=== PATIENT | male | born 1970 | race Hispanic/Latino ===

== ENCOUNTER 2018-11-23 09:24 | Emergency (ER) | payer OTHER, SELFPAY ==
[2018-11-23 09:26] VITALS: BP 154/91; PULSE 78; RESP 19; TEMP 36.1; O2SAT 96; BMI 35.5
--- NOTE | 2018-11-23 09:37 | EKG12_ITS ---
Test Reason : CP Blood Pressure : / mmHG Vent. Rate : 065 BPM Atrial Rate : 065 BPM P-R Int : 162 ms QRS Dur : 102 ms QT Int : 398 ms P-R-T Axes : 046 018 017 degrees QTc Int : 413 ms Normal sinus rhythm Normal ECG Confirmed by YESENIA PEDROZA, CAITY ([id number]), technical editor SAUL BATEMAN ([id number]) on 11/24/2018 3:32:45 PM Referred By: PC Confirmed By:CAITY PATTERSON MD
--- NOTE | 2018-11-23 09:37 | RAD_ITS ---
STUDY: X-RAY CHEST REASON FOR EXAM: Male, 47 years old. Chest pain. Hypertension. TECHNIQUE: Single AP portable view of the chest. COMPARISON: None. FINDINGS: EKG electrodes are seen. The lungs are clear and expanded. Scattered calcified granulomas. There is no demonstrated pleural abnormality. Normal size heart. Normal mediastinum and david. Normal visualized pulmonary arteries. Normal visualized aortic arch and descending thoracic aorta. Normal visualized thoracic spine. Normal visualized ribs, clavicles, and shoulders. There is no demonstrated abnormality of the visualized soft tissue structures of the upper abdomen. RAD/Chest 1 View (Portable) IMPRESSION: Normal x-ray examination of the chest. Electronically Signed: Chava De La Cruz MD at 10:39 EST Tel [phone], Service support ,
[2018-11-23 09:49] VITALS: BP 145/88; PULSE 68; RESP 18; O2SAT 97; O2SAT 98
[2018-11-23 10:02] LABS: Absolute Lymphocyte Count 2.96 X10^3/ul (0.83-4.51); Absolute Neutrophil Count 5.1 X10^3/uL (2.0-7.7); Basophil# 0.05 X10^3/uL; Basophil% 0.6 % (0-1); Eosinophil# 0.15 X10^3/uL; Eosinophils% 1.7 % (0-5); Hemoglobin 14.2 g/dl (13.0-16.5); Lymphocyte # 2.96 X10^3/ul (4.0); Lymphocyte % 32.9 % (19-41); Mean Corpuscular Hgb 29.5 pg (27.0-32.0); Mean Corpuscular Volume 89.2 fL (80-94); Mean Platelet Vol. 9.9 fl (6.2-12.0); Monocyte# 0.66 X10^3/uL; Monocyte% 7.3 % (0-10); Neutrophil # 5.14 X10^3/uL (2.7-7.7); Neutrophil % 57.2 % (47-70); Platelet Count 280 K/mm3 (150-450); RBC Distribution Width CV 13.8 % (11.6-14.6); RBC Distribution Width SD 44.9 fl (35.1-43.9); Red Blood Count 4.82 M/mm3 (4.6-6.2)
[2018-11-23 10:06] LABS: POSITIVE COUNT NO; POSITIVE DIFFERENTIAL NO; POSITIVE MORPHOLOGY NO
[2018-11-23 10:14] LABS: Anion Gap 7 (5-15); BUN 16 mg/dL (7-18); Calcium,Total 8.6 mg/dL (8.5-10.1); Chloride 107 mmol/L (98-107); Creatinine, Serum 1.07 mg/dL (0.70-1.30); EST Glomerular Filtration Rate 78 mL/min (>60); Est Glom Filt Rate - Afr Amer 95 mL/min (>60); Glucose 100 mg/dL (74-106); Potassium 4.1 mmol/L (3.5-5.1); Sodium Level 141 mmol/L (136-145)
--- NOTE | 2018-11-23 10:20 | ED.VISSUMM ---
- ER Visit Summary Date of Service: 11/23/18 Chief Complaint: Chest pain History of Present Illness: The patient is a 47 M with a 2-day history of intermittent chest pain, he has episodes of sharp stabbing pain the last 1 or 2 seconds sometimes 3 seconds. No radiation. No back pain or tearing sensation. 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 No shortness of breath. No abdominal pain. No headache or neurological symptoms. Otherwise he feels well. Physical Examination: Not appear in acute distress. Moist mucous membranes, no obvious facial deformity No C-spine tenderness supple neck. Regular rate and rhythm without any obvious murmurs Clear lungs bilaterally speaking in full sentences without any obvious respiratory distress Abdomen soft and nontender no guarding or rebound Moves all extremities without any difficulty or pain. Skin does not show any obvious rashes or lesions, no trauma. Alert oriented ?3 with no gross focal deficit Emergency Department Course and Treatment: Patient has a normal EKG, normal troponin. Heart score is 1 at best. He is stable for discharge to follow-up with PCP. There is no concern for PE or dissection. His blood pressure in the emergency department is only slightly elevated at 150/91. Disposition: Discharge stable condition Impression: Chest pain. This note was generated with [employer] dictation software. It may contain incorrect words, spelling, and punctuation that were not noted in review of the chart prior to signing ED Disposition - Plan for ED Patient: Disposition: Home or Assisted Living Chief Complaint: Hypertension Instructions: ED HTN Established [facility] [[facility] Provider] -
[2018-11-23] MEDS: Aspirin 81 MG TAB.CHEW 324 MG PO (10:33)
[2018-11-23 10:36] VITALS: BP 144/86; PULSE 78; RESP 16; O2SAT 97
== END 2018-11-23 10:37 | disposition home or self-care (01) ==
PROVIDERS: Emergency Provider Emergency Medicine
DX: R07.9 Chest pain, unspecified (principal)
CPT/HCPCS: 71045; 80048; 84484; 85025; 93005; 99284

== ENCOUNTER 2018-12-01 13:43 | Emergency (ER) | payer OTHER, SELFPAY ==
[2018-12-01 13:44] VITALS: BP 156/77; PULSE 98; RESP 18; TEMP 38.4; O2SAT 96; BMI 37.4
[2018-12-01 14:31] VITALS: TEMP 37.6
--- NOTE | 2018-12-01 15:08 | ED.DCSUM_ITS ---
- ER Visit Summary Date of Service: 12/01/18 Chief Complaint: Fever History of Present Illness: The patient is a 47 M with a fever that started yesterday and continued today. He has been alternating Tylenol and Motrin, but he has still been having fevers. He also reports flulike symptoms, cough, myalgias, chills. He is previously healthy and takes no chronic medications. Non-smoker. No chest pain or shortness of breath. No nausea, vomiting, or diarrhea. No urinary symptoms. No rash. Physical Examination: 99.6. Blood pressure 156/77. Heart rate 98. Pulse ox 96% on room air. The patient appears uncomfortable but not toxic or in distress. Alert and oriented. HEENT exam unremarkable. Neck nontender with good range of motion. No meningeal signs. Heart regular rate and rhythm. No murmurs. Lungs clear in all cook. Abdomen soft. Moves all extremities. Joints good range of motion. Good strength and sensation. Skin normal in color. Test Results: Influenza testing was negative. Emergency Department Course and Treatment: Patient likely has a viral syndrome. He has flulike symptoms. No red flag features. His exam, vitals, history, and past medical history are all reassuring. No indication for further diagnostic testing, especially consultation, hospitalization. Patient should continue alternating Tylenol and/or Motrin as needed for pain and fever. Stay hydrated. Rest. Return for any new or worsening issues. Treatment Plan: As above Disposition: Discharge Impression: 1. Febrile illness This note was generated with [employer] dictation software. It may contain incorrect words, spelling, and punctuation that were not noted in review of the chart prior to signing ED Disposition - Plan for ED Patient: Chief Complaint: Fever [facility] [[facility] Provider] -
--- NOTE | 2018-12-01 15:08 | ED.DEP ---
ED Disposition - Plan for ED Patient: Chief Complaint: Fever Instructions: ED Fever Unconf Cause [facility]errals[facility] [Primary [facility] Provider] -
[2018-12-01 15:13] VITALS: BP 150/76; PULSE 87; RESP 16; O2SAT 99
--- OUTSIDE RECORDS SUMMARY | 2019-02-05 14:25 | XMS RPT_ITS ---
:1970 Author Organization [facility] Care Team Providers Name Role Phone Pascual Santana Attending [facility] Inderjit Sands Attending Unavailable PROBLEMS PROBLEMS No Problem Records FoundPROCEDURES PROCEDURES No Procedure Records FoundRESULTS RESULTS EMERGENCY DEPARTMENT Observed: 12/01/2018 Status: F Source: [place] SUMMARY 11:50 PM [facility] REPOSITORY [facility] Medical Records Department [address] [place] [address] Emergency Department Summary 12/01/18 1505 MR#: [id number] Acct: [id number] Name: RAJEEV SERRANO Rep #: [id number] : 1970 47 From: Inderjit Sands MD PCP: [place], [place] Status: DEP ER - ER Visit Summary Date of Service: 12/01/18 Chief Complaint: Fever History of Present Illness: The patient is a 47 M with a fever that started yesterday and continued today. He has been alternating Tylenol and Motrin, but he has still been having fevers. He also reports flulike symptoms, cough, myalgias, chills. He is previously healthy and takes no chronic medications. Non-smoker. No chest pain or shortness of breath. No nausea, vomiting, or diarrhea. No urinary symptoms. No rash. Physical Examination: 99.6. Blood pressure 156/77. Heart rate 98. Pulse ox 96% on room air. The patient appears uncomfortable but not toxic or in distress. Alert and oriented. HEENT exam unremarkable. Neck nontender with good range of motion. No meningeal signs. Heart regular rate and rhythm. No murmurs. Lungs clear in all cook. Abdomen soft. Moves all extremities. Joints good range of motion. Good strength and sensation. Skin normal in color. Test Results: Influenza testing was negative. Emergency Department Course and Treatment: Patient likely has a viral syndrome. He has flulike symptoms. No red flag features. His exam, vitals, history, and past medical history are all reassuring. No indication for further diagnostic testing, especially consultation, hospitalization. Patient should continue alternating Tylenol and/or Motrin as needed for pain and fever. Stay hydrated. Rest. Return for any new or worsening issues. Treatment Plan: As above Disposition: Discharge Impression: 1. Febrile illness This note was generated with [employer] dictation software. It may contain incorrect words, spelling, and punctuation that were not noted in review of the chart prior to signing ED Disposition - Plan for ED Patient: Chief Complaint: Fever [place] [facility] [Primary Care Provider] - What to do if you have Problems For any increased pain, shortness of breath, bleeding, nausea or vomiting, chest pain, or any unexpected problems, contact your Primary Care Provider. Call [facility] ([phone]) or report to the closest Emergency Room. Call 911 if necessary. 12/01/18 4550 <Electronically signed by Inderjit Sands MD> Date Inderjit Sands MD Cosigner Signature (If Indicated): Date CC: [facility] DISCHARGE INSTRUCTION Observed: 12/01/2018 Status: F Source: [place] 11:50 PM [facility] REPOSITORY [facility] Medical Records Department [address] [place] [address] Discharge Instruction 12/01/18 1508 MR#: [id number] Acct: [id number] Name: RAJEEV SERRANO Rep #: [id number] : 1970 47 From: Inderjit Sands MD PCP: [place] Status: DEP ER ED Disposition - Plan for ED Patient: Chief Complaint: Fever Instructions: ED Fever Unconf Cause Referrals[facility] [Primary [facility] Provider] - What to do if you have Problems For any increased pain, shortness of breath, bleeding, nausea or vomiting, chest pain, or any unexpected problems, contact your Primary Care Provider. Call [facility] ([phone]) or report to the closest Emergency Room. Call 911 if necessary. 12/01/18 2350 <Electronically signed by Inderjit Sands MD> Date Inderjit Sands MD Cosigner Signature (If Indicated): Date CC: [facility] Observed: 12/01/2018 Status: F Source: [place] INFLUENZA A+B (RAPID 2:[address] [facility]) REPOSITORY FLU A/B Rapid Negative test results should be confirmed with FLU PANEL MOLECULAR if indicated. Influenza Ag, Direct Presumptive NEGATIVE for Influenza A/B Antigen (See Note) Performed By: #### M101.0101 #### [facility] [address] [place] [address]. [place], [address] 12 LEAD ELECTROCARDIOGRAM Observed: 11/24/2018 Status: F Source: [place] 3:33 PM [facility] REPOSITORY [facility] Cardiovascular Services [address] [place] [address] 12 Lead EKG 11/23/18 0934 MR#: [id number] Acct: [id number] Name: RAJEEV SERRANO Rep #: [id number] : 1970 47 From: Pascual Patterson MD Attending Dr: Status: DEP ER Ordering Dr: Pascual Santana MD Date: 11/23/18 Location: ED Sex: M H Admitted: Test Reason : CP Blood Pressure : / mmHG Vent. Rate : 065 BPM Atrial Rate : 065 BPM P-R Int : 162 ms QRS Dur : 102 ms QT Int : 398 ms P-R-T Axes : 046 018 017 degrees QTc Int : 413 ms Normal sinus rhythm Normal ECG Confirmed by YESENIA PEDROZA, PASCUAL ([id number]), scientific editor SAUL BATEMAN ([id number]) on 11/24/2018 3:32:45 PM Referred By: PC Confirmed By:PASCUAL PATTERSON MD 11/24/18 1532 Date Pascual Patterson MD CC: [facility]; Pascual Santana MD Signed EMERGENCY DEPARTMENT Observed: 11/23/2018 Status: F Source: [place] SUMMARY 10:23 AM [facility] REPOSITORY [facility] Medical Records Department [address] [place] [address] Emergency Department Summary 11/23/18 1020 MR#: [id number] Acct: [id number] Name: RAJEEV SERRANO Rep #: [id number] : 1970 47 From: Pascual Santana MD PCP: [place] Status: REG ER - ER Visit Summary Date of Service: 11/23/18 Chief Complaint: Chest pain History of Present Illness: The patient is a 47 M with a 2- day history of intermittent chest pain, he has episodes of sharp stabbing pain the last 1 or 2 seconds sometimes 3 seconds. No radiation. No back pain or tearing sensation. 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 No shortness of breath. No abdominal pain. No headache or neurological symptoms. Otherwise he feels well. Physical Examination: Not appear in acute distress. Moist mucous membranes, no obvious facial deformity No C-spine tenderness supple neck. Regular rate and rhythm without any obvious murmurs Clear lungs bilaterally speaking in full sentences without any obvious respiratory distress Abdomen soft and nontender no guarding or rebound Moves all extremities without any difficulty or pain. Skin does not show any obvious rashes or lesions, no trauma. Alert oriented 3 with no gross focal deficit Emergency Department Course and Treatment: Patient has a normal EKG, normal troponin. Heart score is 1 at best. He is stable for discharge to follow- up with PCP. There is no concern for PE or dissection. His blood pressure in the emergency department is only slightly elevated at 150/91. Disposition: Discharge stable condition Impression: Chest pain. This note was generated with [employer] dictation software. It may contain incorrect words, spelling, and punctuation that were not noted in review of the chart prior to signing ED Disposition - Plan for ED Patient: Disposition: Home or Assisted Living Chief Complaint: Hypertension Instructions: ED HTN Established [facility]errals[facility] [Primary Care Provider] - What to do if you have Problems For any increased pain, shortness of breath, bleeding, nausea or vomiting, chest pain, or any unexpected problems, contact your Primary Care Provider. Call [facility] ([phone]) or report to the closest Emergency Room. Call 911 if necessary. 11/23/18 1023 <Electronically signed by Pascual Santana MD> Date Pascual Santana MD Cosigner Signature (If Indicated): Date CC: [facility] CBC W/DIFF, AUTOMATED Collected: 11/23/2018 Status: F Source: [place] 9:50 AM [facility] REPOSITORY TYPE CODE TESTS RESULT OUT OF RANGE REFERENCE UNITS LAB L100.1000 4.4-11.0 K/mm3 Normal WBC 9.0 LAB L100.1200 4.6-6.2 M/mm3 Normal RBC 4.82 LAB L100.1300 13.0-16.5 g/dl Normal HGB 14.2 LAB L100.1400 40-54 % Normal HCT 43.0 LAB L100.1500 80-94 fL Normal MCV 89.2 LAB L100.1600 27.0-32.0 pg Normal MCH 29.5 LAB L100.1700 32-36 g/gl Normal MCHC 33.0 LAB L100.1810 11.6-14.6 % Normal RDW CV 13.8 LAB L100.1820 35.1-43.9 fl High RDW SD 44.9 LAB L100.1900 150-450 K/mm3 Normal PLT 280 LAB L100.2000 6.2-12.0 fl Normal MPV 9.9 LAB L100.2100 47-70 % Normal NEUT% 57.2 LAB L100.2200 19-41 % Normal LY% 32.9 LAB L100.2300 0-10 % Normal MONO% 7.3 LAB L100.2400 0-5 % Normal EO% 1.7 LAB L100.2500 0-1 % Normal BASO% 0.6 LAB L100.2550 0.0-0.9 % Normal IM GRAN % 0.300 Result Comment: IG% - Immature Granulocytes (promyelocytes, myelocytes and metamyelocytes) > 1% indicates that a LEFT SHIFT is Present. LAB L100.2620 2.0-7.7 X10 3/uL Normal Absolute Neut 5.1 LAB L100.2720 0.83-4.51 X10 3/ul Normal Absolute Lymph 2.96 Performed By: #### L100.0100 #### [facility] [address] [place], [place], [address] BASIC METABOLIC Collected: 11/23/2018 Status: F Source: [place] PROFILE (BMP) 9:50 AM [facility] REPOSITORY TYPE CODE TESTS RESULT OUT OF RANGE REFERENCE UNITS LAB L501.0100 74-106 mg/dL Normal GLU 100 Result Comment: Fasting Glucose result from 100 to 125 mg/dL suggests IMPAIRED HOMEOSTASIS per A.D.A. criteria. Please note revised GLUCOSE reference range effective 2017. LAB L501.1000 7-18 mg/dL Normal BUN 16 LAB L501.1100 0.70-1.30 mg/dL Normal CREAT,SERUM 1.07 Result Comment: The validity of the calculated GFR AND GFRAA in patients over 70 years has not been determined. Clinical correlation is essential. LAB L501.1110 >60 mL/min Normal EST GFR 78 Result Comment: Non- GFR Calc LAB L501.1115 >60 mL/min Normal EST GFR - AA 95 Result Comment: GFR Calc LAB L501.1255 ml/min Normal Estimated CRCL 90.90 LAB L501.1300 10-20 RATIO Normal BUN/CRE 15.0 LAB L501.2200 8.5-10 mg/dL Normal .1 CA 8.6 LAB L501.5300 136-14 mmol/L Normal 5 NA 141 LAB L501.5600 3.5-5. mmol/L Normal 1 K 4.1 LAB L501.5900 98-107 mmol/L Normal CL 107 LAB L501.6100 21.0-3 mmol/L Normal 2.0 CO2 27.0 LAB L501.6200 5-15 Normal GAP 7 Performed By: #### L500.2500, L501.4010 #### [facility] [address] [facility] [address] [place], [place], [address] TROPONIN-I Collected: 11/23/2018 Status: F Source: [place] 9:50 AM [facility] REPOSITORY TYPE CODE TESTS RESULT OUT OF RANGE REFERENCE UNITS LAB L501.4010 <0.045 ng/mL Normal < 0.015 TROPONIN-I Result Comment: TROPONIN-I EXPECTED VALUES <0.045 Negative 0.045 - 0.590 Consistent with Cardiac Damage > OR = 0.600 Critical Value Not every elevated troponin is indicative of CA. These values should be used with clinical judgement in examining the patient's clinical picture for diagnosis. To establish a diagnosis of CA versus myocardial injury, there must be a demonstrated rise and/or fall in the troponin values, in addition to ischemic symptoms, EKG changes, new regional wall motion abnormality, and/or angiographical evidence. PLEASE NOTE: REFERENCE RANGES EDITED 18 Performed By: #### L500.2500, L501.4010 #### [facility] [address] [place], [place], [address] CHEST 1 VIEW Observed: 11/23/2018 Status: F Source: [place] (PORTABLE) 9:38 AM [facility] REPOSITORY [facility] Imaging Services [address] [place] [address] Chest 1 View (Portable) MR#: [id number] Acct: [id number] Name: RAJEEV SERRANO Rep #: [id number] : 1970 M 47 From: Chava De La Cruz MD PCP: [place] Status: DEP ER Study: Chest 1 View (Portable) Date of Exam: 11/23/18 Exam# [id number] Ordering Dr: Pascual Santana MD STUDY: X-RAY CHEST REASON FOR EXAM: Male, 47 years old. Chest pain. Hypertension. TECHNIQUE: Single AP portable view of the chest. COMPARISON: None. FINDINGS: EKG electrodes are seen. The lungs are clear and expanded. Scattered calcified granulomas. There is no demonstrated pleural abnormality. Normal size heart. Normal mediastinum and david. Normal visualized pulmonary arteries. Normal visualized aortic arch and descending thoracic aorta. Normal visualized thoracic spine. Normal visualized ribs, clavicles, and shoulders. There is no demonstrated abnormality of the visualized soft tissue structures of the upper abdomen. RAD/Chest 1 View (Portable) IMPRESSION: Normal x-ray examination of the chest. Electronically Signed: Chava De La Cruz MD at 10:39 EST Tel [phone], Service support , CC: [facility]; Pascual Santana MD Chain Carrier: Signed ALLERGIES ALLERGIES DATE TYPE / CODE NAME / CODE REACTION SEVERITY SOURCE 12/01/2018 Drug hydrocodone/ Itching Unknown [facility]/4160 [id number]([facility] [address]10(SNOMED XNORM) Repository CT) 12/01/2018 Drug oxycodone/F0 Itching Unknown [facility] Allergy/4160 [id number]([facility] 96830(SNOMED ORM) Repository CT) ENCOUNTERS ENCOUNTERS ADMIT/DISCHARGE ACCOUNT ADMITTING ENCOUNTER LOCATION SOURCE NUMBER CLASS 12/01/2018/ [id number] Emergency [facility] ing:ED Repository 11/23/2018/ [id number] Emergency [place] [address] [place] [address] ing:ED Repository PAYERS PAYERS ENCOUNTER GUARANTOR PAYER SUBSCRIBER SOURCE 12/01/2018 RAJEEV CROWEERA211 Primary Insurance:AL RAJEEV [place] [facility] LOERADOB: [place], [place] Number: [id number] [address]Lon: [phone] [id number] Repository [phone] () Date:[id number] SERVICE [id number] [place], [place] [address]VZ: [phone] X2003 12/01/2018 Secondary RAJEEV [place] Insurance: LOSEARSPORTDOB: [facility] Number: [id number] [id number] Repository Date:[id number] [address]KC: 12/01/2018 Tertiary NOT GIVENUNK [place] Insurance:SELF PAY [facility] Number: Effective Repository Date:2018-12-01 11/23/2018 RAJEEV CROWEERA211 Primary Insurance:AL RAJEEV [place] [facility] LOERADOB: [place] Number: [id number] [address]Hhz: [phone] [id number] Repository [phone] (HP) Date:[id number] SERVICE [id number] [place], [place] [address]BR: [phone] X2003 11/23/2018 Secondary NOT GIVENUNK [place] Insurance:SELF PAY [facility] Number: Effective Repository Date:2018-11-23
== END 2018-12-01 15:14 | disposition home or self-care (01) ==
LOC: ED 15:06
PROVIDERS: Emergency Provider Emergency Medicine
DX: R50.9 Fever, unspecified (principal)
CPT/HCPCS: 87804; 99282

== ENCOUNTER 2021-10-17 05:16 | Day surgery (SDC) | payer OTHER, SELFPAY ==
--- NOTE | 2021-10-17 05:49 | HP.PCM_ITS ---
History and Physical Date of Admission: 10/17/21 Intake Visit Reasons: CSCOPE Chief Complaint: colonoscopy, hx polyps Medical Imaging Director Required: No Is patient in pain?: No Allergies hydrocodone Allergy (Verified 09/19/21 08:43) Itching oxycodone Allergy (Verified 09/19/21 08:43) Itching topiramate [From Topamax] Adverse Reaction (Mild, Verified 09/19/21 08:43) altered mental status Medications ibuprofen 200 mg capsule 200 mg PO Q6H PRN 04/26/20 [History Confirmed 09/19/21] dextroamphetamine-amphetamine 20 mg tablet 20 mg PO DAILY 09/19/21 [History Confirmed 09/19/21] dextroamphetamine-amphetamine ER 30 mg 24hr capsule,extend release 30 mg PO DAILY cap 09/19/21 [History Confirmed 09/19/21] PFSH Medical History (Updated 09/19/21 @ 08:[address] Jovan Kumar MD) Bloody stools Hemorrhoids Knee pain neck and back pain Plantar fasciitis Severe headache Shoulder pain Surgical History (Updated 09/19/21 @ 08:47 by Buffy Lopez) History of ankle surgery History of appendectomy History of colonoscopy Family History (Updated 09/19/21 @ 08:47 by Buffy Lopez) Mother Diabetes Brother Diabetes Social History Smoking Status: Never smoker Smokeless tobacco user: chewing tobacco alcohol intake: current HPI HPI HPI: RAJEEV SERRANO, is a 50 M who presents to the office today for surgical consultation regarding colonoscopy. The patient is referred by the [place] [facility] and a written copy of my consult and recommendations will return to them. He occasionally will have some rectal bleeding. It will be on the tissue. It is painless. Previous colonoscopy was done in the [facility] not quite 10 years ago. There is a history however of colon polyps. The patient is now retired from the . 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 He is currently taking care of his children at home. He denies abdominal pain. He has had head trauma and states that he has had a remote stroke but that it did not leave him with any deficit. ROS General General: No weight change, appetite, fatigue, colon cancer, breast cancer or weakness HEENT HEENT: No difficulty swallowing, eye injury, eye surgery, swollen glands or hoarseness Endo Endocrine: No thyroid disease, diabetes mellitus, thyroid cancer, Hair loss, heat intolerance or cold intolerance Musc Musculoskeletal: Yes back problems and arthritis; No rheumatoid arthritis, gout or joint pain Cardio Cardiovascular: No murmur, pacemaker, heart disease, atrial fibrillation, high blood pressure, heart attack, heart stent, palpitations, shortness of breat with exertion or chest pain Psych Psychiatric: No depression, anxiety or hearing voices Resp Respiratory: No shortness of breath, No sleep apnea, No cough, No COPD, No asthma, No emphysema and No wheezing Gastro Gastrointestinal: No abdominal pain, No nausea or vomiting, Yes diarrhea, No constipation, Yes blood in stool, No acid reflux, Yes hemorrhoids, Yes ulcers, No gallbladder problem and No black,tarry stools Rc Hematologic: No blood thinners, No blood disorders, No bleeding, No anemia and No blood clots Neuro Neurologic: No weakness Exam Const General: cooperative, healthy appearing, comfortable and no acute distress Nutritional Appearance: overweight Orientation: alert and awake [facility] Head: normal to inspection Chest Chest palpation & inspection: normal inspection of the chest Resp Effort & Inspection: normal respiratory effort Auscultation: clear to auscultation bilaterally Cardio Rate: regular rate GI Palpation: soft and no hepatosplenomegaly Auscultation: normal bowel sounds Neuro General: patient alert and patient awake Extrem General: no calf tenderness Psych Mood: anxious mood Assessment and Plan Assessment and Plan (1) Screening for intestinal cancer: Status: Acute Plan - Dr. Jovan Kumar MD: I recommended the patient a screening colonoscopy with possible biopsy or polypectomy as indicated. It is likely his infrequent blood on the tissue paper secondary to anal rectal disease likely hemorrhoids. He does report of history of polyps. He is retired from the . He has been provided a bowel prep through the [place] [facility] with movie prep. He is not on any anticoagulants. I appreciate the opportunity of assisting with his surgical care. He is considering obtaining the COVID-19 vaccine. He has previously had COVID-19 based upon symptoms and subsequent positive serum antibodies. It has been recommended to him by his physicians at the [place] that he get vaccinated as well and I concur with their recommendations. Copy: [facility] Jovan Kumar M.D., F.A.C.S. I have re-examined the patient. There are no clinical changes since date of exam.
[2021-10-17 05:53] VITALS: BP 150/83; PULSE 69; RESP 16; TEMP 36.8; O2SAT 98; BMI 37.3
[2021-10-17] MEDS: Lactated Ringers 1,000 ML 15 ML IV (05:56)
[2021-10-17 06:45] VITALS: BP 129/89; BP 150/83; PULSE 70; RESP 16; TEMP 36.3; O2SAT 94
--- NOTE | 2021-10-17 06:46 | OP.COLON_ITS ---
Patient Name: Mario Saini Procedure Date: 10/17/2021 6:23 AM Date of : 1970 Age: 50 Procedure: Colonoscopy Indications: Screening for colorectal malignant neoplasm Providers: Jovan Kumar MD Referring MD: [facility] Medicines: See the Anesthesia note for documentation of the administered medications Patient Profile: Last Colonoscopy: 10 years ago. Complications: No immediate complications. Procedure: Pre-Anesthesia Assessment: - Prior to the procedure, a History and Physical was performed, and patient medications and allergies were reviewed. The patient's tolerance of previous anesthesia was also reviewed. The risks and benefits of the procedure and the sedation options and risks were discussed with the patient. All questions were answered, and informed consent was obtained. Prior Anticoagulants: The patient has taken no previous anticoagulant or antiplatelet agents. ASA Grade Assessment: II - A patient with mild systemic disease. After reviewing the risks and benefits, the patient was deemed in satisfactory condition to undergo the procedure. After I obtained informed consent, the scope was passed under direct vision. Throughout the procedure, the patient's blood pressure, pulse, and oxygen saturations were monitored continuously. The Colonoscope was introduced through the anus and advanced to the cecum, identified by appendiceal orifice and ileocecal valve. The colonoscopy was performed without difficulty. The patient tolerated the procedure well. The quality of the bowel preparation was fair. The ileocecal valve and the appendiceal orifice were photographed. Scope In: 6:30:08 AM Scope Withdrawal Time 0 hours 7 minutes 24 seconds Scope Out: 6:41:30 AM Total Procedure Duration Time 0 hours 11 minutes 22 seconds Findings: The digital rectal exam findings include non-thrombosed external hemorrhoids, non-thrombosed internal hemorrhoids and internal hemorrhoids that prolapse with straining, but spontaneously regress to the resting position (Grade II). Posteriorly there is some scarring suggesting a healed posterior anal fissure. No active bleeding from any source. The entire examined colon appeared normal. Impression: - Preparation of the colon was fair. - Non-thrombosed external hemorrhoids, non-thrombosed internal hemorrhoids and internal hemorrhoids that prolapse with straining, but spontaneously regress to the resting position (Grade II) found on digital rectal exam. - The entire examined colon is normal. - No specimens collected. Recommendation: - Discharge patient to home. - Resume previous diet. - Continue present medications. - Repeat colonoscopy in 10 years for screening purposes. Notify me of any occurances of ano-rectal pain or bleeding. Procedure Code(s): --- Professional --- 72450, Colonoscopy, flexible; diagnostic, including collection of specimen(s) by brushing or washing, when performed (separate procedure) Diagnosis Code(s): --- Professional --- Z12.11, Encounter for screening for malignant neoplasm of colon K64.1, Second degree hemorrhoids K64.4, Residual hemorrhoidal skin tags CPT copyright 2017 [employer]. All rights reserved. The codes documented in this report are preliminary and upon search and rescue officer review may be revised to meet current compliance requirements. Jovan Kumar MD 10/17/2021 6:46:29 AM This report has been signed electronically. Number of Addenda: 0 Note Initiated On: 10/17/2021 6:23 AM
--- NOTE | 2021-10-17 06:46 | OP.CCLET_ITS ---
10/17/2021 [facility] Re : Colonoscopy procedure for [facility] This procedure was performed on October. My impressions and recommendations are as follows: Impressions : - Preparation of the colon was fair. - Non-thrombosed external hemorrhoids, non-thrombosed internal hemorrhoids and internal hemorrhoids that prolapse with straining, but spontaneously regress to the resting position (Grade II) found on digital rectal exam. - The entire examined colon is normal. - No specimens collected. Recommendations : - Discharge patient to home. - Resume previous diet. - Continue present medications. - Repeat colonoscopy in 10 years for screening purposes. Notify me of any occurances of ano-rectal pain or bleeding. My findings are described in the full procedure note, which is enclosed. If I can be of further assistance, please feel free to contact me at Doctor phone number(s): Work: . Sincerely, Jovan Kumar MD 10/17/2021 6:46:29 AM This report has been signed electronically.
[2021-10-17 06:52] VITALS: BP 138/67; BP 150/83; PULSE 68; RESP 16; O2SAT 94
[2021-10-17 06:57] VITALS: BP 131/89; BP 150/83; PULSE 70; RESP 16; O2SAT 96
[2021-10-17 07:02] VITALS: BP 140/91; BP 150/83; PULSE 69; RESP 16; TEMP 36.3; O2SAT 97
[2021-10-17 07:15] VITALS: BP 150/83
== END 2021-10-17 07:47 | disposition home or self-care (01) ==
LOC: EN 05:19 → AC 05:34
PROVIDERS: Anesthesiology; Visit Provider Surgery
PROC: 0DJD8ZZ Inspection of Lower Intestinal Tract, Via Natural or Artificial Opening Endoscopic (ICD-10-PCS; CPT 45378; principal; 2021-10-17 06:25)
DX: Z12.11 Encounter for screening for malignant neoplasm of colon (principal); K64.1 Second degree hemorrhoids; F41.9 Anxiety disorder, unspecified; M19.90 Unspecified osteoarthritis, unspecified site; Z79.899 Other long term (current) drug therapy; Z86.010 Personal history of colon polyps; Z86.73 Personal history of transient ischemic attack (TIA), and cerebral infarction without residual deficits
CPT/HCPCS: 45378; 87635; C9803; J7120; U0005; J2405; U0003

== ENCOUNTER → 2025-11-10 | Outpatient (CLI) | payer OTHER, SELFPAY ==
--- OUTSIDE RECORDS SUMMARY | 2025-11-10 12:35 | XMS RPT_ITS | CCD ---
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 mmol/L Invalid Interpretation Code 136 - 145 mmol/L AO ADM SS Urea nitrogen [Mass/Vol] 15 mg/dL Invalid Interpretation Code 7 - 18 mg/dL AO ADM SS Urea nitrogen/Creatinine [Mass ratio] 13 ratio Invalid Interpretation Code 7 - 27 ratio AO ADM SS LABORATORYOrdered By: SYSTEM SYSTEM on 11-06-2021 GFR 82 ml/min/1.73sqm Invalid Interpretation Code AO Chemistry S GFR Non- 68 ml/min/1.73sqm Invalid Interpretation Code AO Chemistry S LABORATORYOrdered By: Elisa Aguero on 11-06-2021 Troponin I.cardiac DL <= 0.01 ng/mL [Mass/Vol] 10.0 ng/L Invalid Interpretation Code 0.0 - 76.2 ng/L AO ADM SS Colonoscopy Reporton 021 Colonoscopy Report [facility] Medical Records Department [address] [place] [id number] Colonoscopy Report MR#: [id number] Acct: [id number] Name: MARIO SAINI Rep #: [id number] : 1970 50 From: Jovan Kumar MD PCP: [place] Status:[facility] Patient Name: Maroi Saini Procedure Date: 10/17/2021 6:23 AM Date of : 1970 Age: 50 Procedure: Colonoscopy Indications: Screening for colorectal malignant neoplasm Providers: Jovan Kumar MD Referring MD: [facility] Medicines: See the Anesthesia note for documentation of the administered medications Patient Profile: Last Colonoscopy: 10 years ago. Complications: No immediate complications. Procedure: Pre-Anesthesia Assessment: - Prior to the procedure, a History and Physical was performed, and patient medications and allergies were reviewed. The patient's tolerance of previous anesthesia was also reviewed. The risks and benefits of the procedure and the sedation options and risks were discussed with the patient. All questions were answered, and informed consent was obtained. Prior Anticoagulants: The patient has taken no previous anticoagulant or antiplatelet agents. ASA Grade Assessment: II - A patient with mild systemic disease. After reviewing the risks and benefits, the patient was deemed in satisfactory condition to undergo the procedure. After I obtained informed consent, the scope was passed under direct vision. Throughout the procedure, the patient's blood pressure, pulse, and oxygen saturations were monitored continuously. The Colonoscope was introduced through the anus and advanced to the cecum, identified by appendiceal orifice and ileocecal valve. The colonoscopy was performed without difficulty. The patient tolerated the procedure well. The quality of the bowel preparation was fair. The ileocecal valve and the appendiceal orifice were photographed. Scope In: 6:30:08 AM Scope Withdrawal Time 0 hours 7 minutes 24 seconds Scope Out: 6:41:30 AM Total Procedure Duration Time 0 hours 11 minutes 22 seconds Findings: The digital rectal exam findings include non-thrombosed external hemorrhoids, non-thrombosed internal hemorrhoids and internal hemorrhoids that prolapse with straining, but spontaneously regress to the resting position (Grade II). Posteriorly there is some scarring suggesting a healed posterior anal fissure. No active bleeding from any source. The entire examined colon appeared normal. Impression: - Preparation of the colon was fair. - Non-thrombosed external hemorrhoids, non-thrombosed internal hemorrhoids and internal hemorrhoids that prolapse with straining, but spontaneously regress to the resting position (Grade II) found on digital rectal exam. - The entire examined colon is normal. - No specimens collected. Recommendation: - Discharge patient to home. - Resume previous diet. - Continue present medications. - Repeat colonoscopy in 10 years for screening purposes. Notify me of any occurances of ano-rectal pain or bleeding. Procedure Code(s): --- Professional --- 54329, Colonoscopy, flexible; diagnostic, including collection of specimen(s) by brushing or washing, when performed (separate procedure) Diagnosis Code(s): --- Professional --- Z12.11, Encounter for screening for malignant neoplasm of colon K64.1, Second degree hemorrhoids K64.4, Residual hemorrhoidal skin tags CPT copyright 2017 [employer]. All rights reserved. The codes documented in this report are preliminary and upon almond blancher hand review may be revised to meet current compliance requirements. Jovan Kumar MD 10/17/2021 6:46:29 AM This report has been signed electronically. Number of Addenda: 0 Note Initiated On: 10/17/2021 6:23 AM 10/17/21645 Date Jovan Kumar MD Cosigner Signature: Date (if indicated) CC: Dr. Jovan Kumar MD; [facility] Date Dictated: 10/17/21622 Date Transcribed: Life Guard: [facility] Signed Normal [facility] COVID 19, [facility]I [facility](RT COLLECT )on 10-16-2021 SARS-CoV-2 (COVID-19) RNA GOPI+probe Ql (Unsp spec) Not detected Normal Not Detect [facility] Comment on above: Order Comment: Reaso n for Exam: preop Result Comment: Norm al Reference Range: Not Detected Method:(RT-PCR) real-time reverse transcriptase PCR [employer]x The Echo System Instrument *The Food and Drug Administration (FDA) has issued an Emergency Use Authorization (EAU) for the The Echo System SARS-CoV-2 Assay for the rapid detection of the virus that causes COVID-19. This test has been validated, but the FDAs independent review of this validation is pending. *Negative results do not preclude infection and should not be used as the sole basis for treatment or patient management. Optimum specimen types and timing for peak viral levels during infections caused by SARS-CoV-2 have not been determined. Collection of multiple specimens from the same patient may be necessary to detect the virus. The possibility of a false negative result should be considered if the patient has clinical presentation or has had recent exposure. Performed By: #### L [id number] #### [facility] [address] [place], [address] Surgery Visit Reporton 09-19 Surgery Visit Report [facility] [address] [place] [address] OFFICE VISIT Date of Service: 09/19/21 MR#: [id number] Acct: [id number] Name: MARIO SAINI Rep #: [id number] : 1970 Provider: Dr. Jovan gould MD Age/Sex: 50/M Location: [facility] Status: Signed Intake Vital Signs 09/19/21 08:45 Height 5 ft 11 in Weight: 265 lb 2 oz BMI 36.9 BP 154/81 H Blood Pressure Location Rt brachial Position Sitting Respiration 20 H Pulse 73 Pulse Source NIBP Temp 97.7 F L Temp Source Temporal Pulse Oximetry (%) 99 Oxygen Delivery Method room air Intake Visit Reasons: CSCOPE Chief Complaint: colonoscopy, hx polyps Environmental Intern Required: No Is patient in pain?: No Allergies hydrocodone Allergy (Verified 09/19/21 08:43) Itching oxycodone Allergy (Verified 09/19/21 08:43) Itching topiramate [From Topamax] Adverse Reaction (Mild, Verified 09/19/21 08:43) altered mental status Medications ibuprofen 200 mg capsule 200 mg PO Q6H PRN 04/26/20 [History Confirmed 09/19/21] dextroamphetamine-amp hetamine 20 mg tablet 20 mg PO DAILY 09/19/21 [History Confirmed 09/19/21] dextroamphetamine-amp hetamine ER 30 mg 24hr capsule,extend release 30 mg PO DAILY cap 09/19/21 [History Confirmed 09/19/21] PFSH Medical History (Updated 09/19/21 @ 08:[address] Jovan Kumar MD) Bloody stools Hemorrhoids Knee pain neck and back pain Plantar fasciitis Severe headache Shoulder pain Surgical History (Updated 09/19/21 @ 08:47 by Buffy Lopez) History of ankle surgery History of appendectomy History of colonoscopy Family History (Updated 09/19/21 @ 08:47 by Buffy Lopez) Mother Diabetes Brother Diabetes Social History Smoking Status: Never smoker Smokeless tobacco user: chewing tobacco alcohol intake: current HPI HPI HPI: MARIO SAINI, is a 50 M who presents to the office today for surgical consultation regarding colonoscopy. The patient is referred by the [place] [facility] and a written copy of my consult and recommendations will return to them. He occasionally will have some rectal bleeding. It will be on the tissue. It is painless. Previous colonoscopy was done in the [facility] not quite 10 years ago. There is a history however of colon polyps. 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 He is currently taking care of his children at home. He denies abdominal pain. He has had head trauma and states that he has had a remote stroke but that it did not leave him with any deficit. ROS General General: No weight change, appetite, fatigue, colon cancer, breast cancer or weakness HEENT HEENT: No difficulty swallowing, eye injury, eye surgery, swollen glands or hoarseness Endo Endocrine: No thyroid disease, diabetes mellitus, thyroid cancer, Hair loss, heat intolerance or cold intolerance Musc Musculoskeletal: Yes back problems and arthritis; No rheumatoid arthritis, gout or joint pain Cardio Cardiovascular: No murmur, pacemaker, heart disease, atrial fibrillation, high blood pressure, heart attack, heart stent, palpitations, shortness of breat with exertion or chest pain Psych Psychiatric: No depression, anxiety or hearing voices Resp Respiratory: No shortness of breath, No sleep apnea, No cough, No COPD, No asthma, No emphysema and No wheezing Gastro Gastrointestinal: No abdominal pain, No nausea or vomiting, Yes diarrhea, No constipation, Yes blood in stool, No acid reflux, Yes hemorrhoids, Yes ulcers, No gallbladder problem and No black,tarry stools Rc Hematologic: No blood thinners, No blood disorders, No bleeding, No anemia and No blood clots Neuro Neurologic: No weakness Exam Const General: cooperative, healthy appearing, comfortable and no acute distress Nutritional Appearance: overweight Orientation: alert and awake [facility] Head: normal to inspection Chest Chest palpation inspection: normal inspection of the chest Resp Effort Inspection: normal respiratory effort Auscultation: clear to auscultation bilaterally Cardio Rate: regular rate GI Palpation: soft and no hepatosplenomegaly Auscultation: normal bowel sounds Neuro General: patient alert and patient awake Extrem General: no calf tenderness Psych Mood: anxious mood Assessment and Plan Assessment and Plan (1) Screening for intestinal cancer: Status: Acute Plan - Dr. Jovan Kumar MD: I recommended the patient a screening colonoscopy with possible biopsy or polypectomy as indicated. It is likely his infrequent blood on the tissue paper secondary to anal rectal disease likely hemorrhoids. He does report of history of polyps. He is retired from the . He has been pr (more content not included)... Normal [facility] CNCOon 01-27-[address] [facility] Vital Signs Date Time Vital Sign Value Performing Clinician Facility 04-15-2024 10:28-0400 Diastolic Blood Pressure Non-Invasive 83 mm[Hg] DR JAYY MOREIRA MD [facility] 04-15-2024 10:28-0400 Heart rate 70 /min DR JAYY MOREIRA MD [facility] 04-15-2024 10:28-0400 Systolic Blood Pressure Non-Invasive 143 mm[Hg] DR JAYY MOREIRA MD [facility] 04-15-2024 09:14-0400 Blood Pressure Cuff Size DR JAYY MOREIRA MD [facility] 04-15-2024 09:14-[address] JAYY MOREIRA MD [facility] 04-15-2024 09:14-[address] JAYY MOREIRA MD [facility] 04-15-2024 09:14-0400 Body height 180.[address] JAYY MOREIRA MD [facility] 04-15-2024 09:14-0400 Body temperature 97.34 [degF] DR JAYY MOREIRA MD [facility] 04-15-2024 09:14-0400 Body weight 128.[address] JAYY MOREIRA MD [facility] 04-15-2024 09:14-0400 Diastolic Blood Pressure Non-Invasive 103 mm[Hg] DR JAYY MOREIRA MD [facility] 04-15-2024 09:14-0400 Heart rate 85 /min DR JAYY MOREIRA MD [facility] 04-15-2024 09:14-0400 Systolic Blood Pressure Non-Invasive 172 mm[Hg] DR JAYY MOREIRA MD [facility] 01-02-2022 12:51-0500 Body temperature 98.96 [degF] DR PENELOPE JACKSON MD [facility] 01-02-2022 12:51-0500 Diastolic blood pressure 98 mm[Hg] DR PENELOPE JACKSON MD [facility] 01-02-2022 12:51-0500 Heart rate 96 /min DR PENELOPE JACKSON MD [facility] 01-02-2022 12:51-0500 Respiratory rate 18 /min DR PENELOPE JACKSON MD [facility] 01-02-2022 12:51-0500 Systolic blood pressure 138 mm[Hg] DR PENELOPE JACKSON MD [facility] 11-06-2021 11:02-0500 Diastolic blood pressure 86 mm[Hg] NATALIE DONOVAN MD [facility] 11-06-2021 11:02-0500 Heart rate 64 /min NATALIE DONOVAN MD [facility] 11-06-2021 11:02-0500 Respiratory rate 16 /min NATALIE DONOVAN MD [facility] 11-06-2021 11:02-0500 Systolic blood pressure 128 mm[Hg] NATALIE DONOVAN MD [facility] 11-06-2021 10:26-0500 Diastolic blood pressure 74 mm[Hg] NATALIE DONOVAN MD [facility] 11-06-2021 10:26-0500 Heart rate 73 /min NATALIE DONOVAN MD [facility] 11-06-2021 10:26-0500 Respiratory rate 16 /min NATALIE DONOVAN MD [facility] 11-06-2021 10:26-0500 Systolic blood pressure 139 mm[Hg] NATALIE DONOVAN MD [facility] 11-06-2021 10:06-0500 Diastolic blood pressure 76 mm[Hg] NATALIE DONOVAN MD [facility] 11-06-2021 10:06-0500 Heart rate 72 /min NATALIE DONOVAN MD [facility] 11-06-2021 10:06-0500 Respiratory rate 16 /min NATALIE DONOVAN MD [facility] 11-06-2021 10:06-0500 Systolic blood pressure 141 mm[Hg] NATALIE DONOVAN MD [facility] 11-06-2021 09:30-0500 Heart rate 54 /min NATALIE DONOVAN MD [facility] 11-06-2021 08:50-0500 Body height 18 cm NATALIE DONOVAN MD [facility] 11-06-2021 08:50-0500 Body temperature 98.6 [degF] NATALIE DONOVAN MD [facility] 11-06-2021 08:50-0500 Body weight 118 kg NATALIE DONOVAN MD [facility] 11-06-2021 08:50-0500 Heart rate 98 /min NATALIE DONOVAN MD [facility] NEGATED: Highlighted [id number] 13:10-0400 Body height 180.34 cm Leslee Cárdenas NETWORK MANAGER [facility] Work Phone: NEGATED: Highlighted [id number] 13:10-0400 Body height 180 cm Leslee Cárdenas [facility] Work Phone: NEGATED: Highlighted [id number] 13:10-0400 Body mass index (BMI) [Ratio] 36.81 kg/m2 Leslee Cárdenas [facility] Work Phone: NEGATED: Highlighted [id number] 13:10-0400 Body weight 119.3 kg Leslee Cárdenas [facility] Work Phone: NEGATED: Highlighted [id number] 13:10-0400 Body weight 120 kg Leslee Cárdenas [facility] Work Phone: NEGATED: Highlighted [id number] 09:39-0400 Body height 180.34 cm Ebony Laporte AT [facility] Work Phone: NEGATED: Highlighted [id number] 09:39-0400 Body height 180 cm Ebony Laporte AT [facility] Work Phone: NEGATED: Highlighted [id number] 09:39-0400 Body mass index (BMI) [Ratio] 36.81 kg/m2 Ebony Laporte AT [facility] Work Phone: NEGATED: Highlighted [id number] 09:39-0400 Body weight 119.3 kg Ebony Laporte AT [facility] Work Phone: NEGATED: Highlighted [id number] 09:39-0400 Body weight 120 kg Ebony Laporte AT [facility] Work Phone: Encounters Encounter Date Encounter Type Care Provider Facility Start: 04-30-2025 End: 04-30-2025 Emergency department patient visit DR DALI NOLEN DO [facility] Start: 11-30-2024 End: 11-30-2024 ambulatory NOT RECORDED PHYSICIAN Facility:[facility] Start: 11-30-2024 End: 11-30-2024 Patient encounter procedure RENATO MOE DO [facility] Start: 06-17-2024 End: 06-17-2024 ambulatory BRIANNA STUART DO Facility: Start: 06-17-2024 End: 06-17-2024 Patient encounter procedure BRIANNA STUART DO [facility] Start: 04-15-2024 End: 04-15-2024 Emergency department patient visit DR JAYY MOREIRA MD [facility] Start: 01-02-2022 End: 01-02-2022 Emergency department patient visit DR PENELOPE JACKSON MD [facility] Start: 11-06-2021 End: 11-06-2021 Emergency department patient visit NATALIE DONOVAN MD [facility] Procedures Date Procedure Procedure Detail Performing Clinician Start: 03-05-2022 End: 03-05-2022 Arthrocentesis aspir&/inj interm jt/burs w/o us Tucker Puri MD Work Phone: Start: 03-05-2022 End: 03-05-2022 Betamethasone acet&sod phosp Tucker Puri MD Work Phone: Start: 03-05-2022 End: 03-05-2022 BP scrn no perf at interval Tucker Puri MD Work Phone: Start: 03-05-2022 End: 03-05-2022 Calc BMI out nrm anitra nof/u Tucker Puri MD Work Phone: Start: 03-05-2022 End: 03-05-2022 Current tobacco non-user cad cap copd pv ida Puri MD Work Phone: Start: 03-05-2022 End: 03-05-2022 Docrev cur meds by al Puri MD Work Phone: Start: 03-05-2022 End: 03-05-2022 Osteoarthritis symptoms&funcjal status jean Puri MD Work Phone: Start: 03-05-2022 End: 03-05-2022 Pain doc pos and plan Tucker Puri MD Work Phone: Start: 03-05-2022 End: 03-05-2022 Patient encounter procedure Tucker Puri MD Work Phone: Start: 02-26-2022 End: 02-26-2022 Documentation of current medications Leslee Cárdenas NETWORK MANAGER Start: 02-26-2022 End: 02-26-2022 BP scrn no perf at interval Tucker Puri MD Work Phone: Start: 02-26-2022 End: 02-26-2022 Calc BMI abv up anitra f/u Tucker Puri MD Work Phone: Start: 02-26-2022 End: 02-26-2022 Current tobacco non-user cad cap copd pv ida Puri MD Work Phone: Start: 02-26-2022 End: 02-26-2022 Docrev cur meds by al Puri MD Work Phone: Start: 02-26-2022 End: 02-26-2022 Osteoarthritis symptoms&funcjal status jean Puri MD Work Phone: Start: 02-26-2022 End: 02-26-2022 Pain doc pos and plan Tucker Puri MD Work Phone: Start: 02-26-2022 End: 02-26-2022 Patient encounter procedure Tucker Puri MD Work Phone: Appendectomy NATALIE RICHTER MD Arthroscopy of ankle NATALIE LANDIN MD Comment on above: Right Colonoscopy NATALIE RICHTER MD Fasciotomy of foot NATALIE CRENSHAW MD Comment on above: Bilateral Heel injury (disorder) NATALIE DONOVAN MD Comment on above: Right NEGATED: Highlighted rowStart: 03-05-2022 End: 03-05-2022 Documentation of current medications Leslee Cárdenas LPN NEGATED: Highlighted rowStart: 02-26-2022 End: 02-26-2022 Documentation of current medications Ebony Cernshaw AT Plan of Treatment Date Care Activity Detail Author Start: 03-05-2022 End: 03-05-2022 Patient encounter procedure Appointment [facility] Work Phone: Start: 02-26-2022 End: 02-26-2022 Patient encounter procedure Appointment [facility] Work Phone: Payers Date Payer Category Payer [facility] e (JOEL and others) [id number] 06-17-2024 Private Health Insurance [id number] 06-17-2024 Unknown [id number] 11-16-2023 Unknown [id number] 1970 Unknown [id number] 1970 Unknown [id number] 1970 Unknown [id number] 1970 Unknown [id number] Social History Date Type Detail Facility Start: 04-30-2025 Never smoked t obacco (finding) [facility] Assigned At [facility] Start: 02-26-2022 End: 03-05-2022 Assertion Unknown if ever smoked [facility] Work Phone: Start: 10-27-2016 Sex Male (finding) [facility] Functional Status Date Assessment Result Facility 04-15-2024 Functional Status Room check performed [facility] 04-15-2024 Functional Status [facility] Mental Status Date Assessment Result Facility 04-15-2024 Mental Status Orientation Oriented x 4 [facility] 04-15-2024 [facility] Clinical Notes 10-17-2021 to 05-01-2025 Note Date & Type Note Facility 05-01-2025 Hospital Discharge instructions Patient Education 04/30/2025 22:51:44 Chest Wall Pain, Costochondritis Chest Wall Pain: Costochondritis The chest pain that you have had today is caused by costochondritis. This condition is caused by an inflammation of the cartilage joining your ribs to your breastbone. It is not caused by heart or lung problems. Your healthcare team has made sure that the chest pain you feel is not from a life threatening cause of chest pain such as heart attack, collapsed lung, blood clot in the lung, tear in the aorta, or esophageal rupture. The inflammation may have been brought on by a blow to the chest, lifting heavy objects, intense exercise, or an illness that made you cough and sneeze a lot. It often occurs during times of emotional stress. It can be painful, but it is not dangerous. It usually goes away in 1 to 2 weeks. But it may happen again. Rarely, a more serious condition may cause symptoms similar to costochondritis. That s why it s important to watch for the warning signs listed below. Home care Follow these guidelines when caring for yourself at home: If you feel that emotional stress is a cause of your condition, try to figure out the sources of that stress. It may not be obvious. Learn ways to deal with the stress in your life. This can include regular exercise, muscle relaxation, meditation, or simply taking time out for yourself. You may use acetaminophen, ibuprofen, or naproxen to control pain, unless another pain medicine was prescribed. If you have liver or kidney disease or ever had a stomach ulcer, talk with your healthcare provider before using these medicines. You can also help ease pain by using a hot, wet compress or heating pad. Use this with or without a medicated skin cream that helps relieves pain. Do stretching exercise as advised by your provider. Take any prescribed medicines as directed. Follow-up care Follow up with your healthcare provider, or as advised, if you do not start to get better in the next 2 days. When to seek medical advice Call your healthcare provider right away if any of these occur: A change in the type of pain. Call if it feels different, becomes more serious, lasts longer, or spreads into your shoulder, arm, neck, jaw, or back. Shortness of breath or pain gets worse when you breathe Weakness, dizziness, or fainting Cough with dark-colored sputum (phlegm) or blood Abdominal pain Dark red or black stools Fever of 100.4 F (38 C) or higher, or as directed by your healthcare provider [id number] [employer]. [address] [place] [address]. All rights reserved. This information is not intended as a substitute for professional medical care. Always follow your healthcare professional's instructions. Follow Up Care 04/30/2025 21:02:19 With:Call Physician Referral Address:Unknown When:2-4 days [facility] 04-30-2025 Note Discharge Instructions Thank you for allowing [facility] to assist you with your healthcare needs. The following is important discharge information regarding your hospital visit. Diagnosis from Today's Visit Costochondritis What to Do Next You Need to Schedule the Following Appointments Follow Up with Call Physician Referral When:Within 2-4 days Medications Please ask your primary doctor or pharmacist before taking any other medication not listed, including over the counter drugs, herbal medications, vitamins and or supplements as they may interact with your home medications. What How Much When Why Instructions Last Dose New lidocaine topical (Lidoderm 5% topical patch) 1 patch(es) Topical Every day Duration: 7 Days Printed Prescription Changed amoxicillin (amoxicillin 500 mg oral capsule) 1 cap by mouth Three (3) times a day Duration: 7 Days Changed amoxicillin (amoxicillin 875 mg oral tablet) 1 tab(s) by mouth Two (2) times a day Duration: 7 Days Printed Prescription Unchanged amphetamine-dextroamphetamine (Adderall 30 mg oral tablet) 1 tab(s) by mouth Two (2) times a day Unchanged cholecalciferol (Vitamin D3 1000 intl units oral tablet) 1 tab(s) by mouth Two (2) times a day Unchanged chondroitin-glucosamine (Chondroitin-Glucosamine) 1 cap by mouth Once a day Unchanged famotidine (Pepcid 20 mg oral tablet) 1 tab(s) by mouth Two (2) times a day Duration: 7 Days Unchanged herbal/ nutritional product (flax seed oil 1000 mg oral capsule) 2,000 Milligram by mouth Every day Unchanged methylPREDNISolone (Medrol Dosepak 4 mg oral tablet) 1 Packet(s) by mouth Once a day Duration: 6 Days as directed on package labeling Unchanged multivitamin (M.V.I. Adult) Unchanged omega-3 polyunsaturated fatty acids (Fish Oil 1000 mg oral capsule) 2 cap by mouth Once a day Unchanged predniSONE (predniSONE 50 mg oral tablet) 1 tab(s) by mouth Once a day with a meal Allergic reaction Duration: 5 Days Unchanged SUMAtriptan (Imitrex 25 mg oral tablet) 1 tab(s) by mouth Every day as needed for for migraine headache Unchanged traMADol (traMADol 50 mg oral tablet) 1 tab(s) by mouth Every 8 hours as needed for as needed for pain Unchanged venlafaxine (Effexor XR 37.5 mg oral capsule, extended release) 1 cap by mouth Once a day Please take this list to your next doctor s visit. Bring all medications you take, including over the counter medications, herbals and other supplements with you to your doctor s visit. Patients and families are reminded to discard old lists and to update any records with all medication providers or retail pharmacies. Education Materials Chest Wall Pain: Costochondritis The chest pain that you have had today is caused by costochondritis. This condition is caused by an inflammation of the cartilage joining your ribs to your breastbone. It is not caused by heart or lung problems. Your healthcare team has made sure that the chest pain you feel is not from a life threatening cause of chest pain such as heart attack, collapsed lung, blood clot in the lung, tear in the aorta, or esophageal rupture. The inflammation may have been brought on by a blow to the chest, lifting heavy objects, intense exercise, or an illness that made you cough and sneeze a lot. It often occurs during times of emotional stress. It can be painful, but it is not dangerous. It usually goes away in 1 to 2 weeks. But it may happen again. Rarely, a more serious condition may cause symptoms similar to costochondritis. That s why it s important to watch for the warning signs listed below. Home care Follow these guidelines when caring for yourself at home: If you feel that emotional stress is a cause of your condition, try to figure out the sources of that stress. It may not be obvious. Learn ways to deal with the stress in your life. This can include regular exercise, muscle relaxation, meditation, or simply taking time out for yourself. You may use acetaminophen, ibuprofen, or naproxen to control pain, unless another pain medicine was prescribed. If you have liver or kidney disease or ever had a stomach ulcer, talk with your healthcare provider before using these medicines. You can also help ease pain by using a hot, wet compress or heating pad. Use this with or without a medicated skin cream that helps relieves pain. Do stretching exercise as advised by your provider. Take any prescribed medicines as directed. Follow-up care Follow up with your healthcare provider, or as advised, if you do not start to get better in the next 2 days. When to seek medical advice Call your healthcare provider right away if any of these occur: A change in the type of pain. Call if it feels different, becomes more serious, lasts longer, or spreads into your shoulder, arm, neck, jaw, or back. Shortness of breath or pain gets worse when you breathe Weakness, dizziness, or fainting Cough with dark-colored sputum (phlegm) or blood Abdominal pain Dark red or black stools Fever of 100.4 F (38 C) or higher, or as directed by your healthcare provider [id number] [employer]. [address] [place] [address]. All rights reserved. This information is not intended as a substitute for professional medical care. Always follow your healthcare professional's instructions. Additional Information VACCINATE! IT SAVES LIVES! Members of the community who have not yet received the COVID-19 vaccine and would like to receive it can visit one of [facility] vaccine clinics. There are many vaccine clinic locations within the [facility]. For locations and available times, please visit [email or web address] It is important to note that some COVID mobile vaccine clinics are held outdoors and may be canceled in rainy or stormy conditions. To learn more about pediatric vaccinations (ages 5-11), we invite you to visit the [facility] webpage. [email or web address].org/pag [email or web address]-Wqcee-Vcrcvdosgym-[email or web address] ve-Xfrto-Xvweujchu.html To learn more about the COVID-19 vaccine, we invite you to visit the CDC website for a list of frequently asked questions. https://www.cdc.gov/coronavirus/-ncov/vaccines/faq.html [facility] Patient Portal Access Instructions: Stay connected with your healthcare team and access your personal medical information anytime with the [email or web address] Patient Portal. If you would like a full copy of your medical records please contact the [facility] Medical Records Department Thursday through Thursday between 8a.m. and 4:30p.m. Please follow the directions below to access the portal: 1.Access the email account you provided upon registration to the [facility].2.Look for an invitation email from [facility].3.Open the email and access the invitation link: Accept Invitation to [facility]4.Fill in the required cook to create your account. Sign into [email or web address] with your username and password that you created in the above steps to stay up to date. You can then view a summary of results, a summary of your visits, and the ability to download your summaries to your computer or send the information securely to a physician. Remember that your healthcare information is confidential, so carefully consider who you will allow to register on the [facility] Patient Portal for access to your information. You can also access the [facility] Patient Portal on the [employer]. Simply click on Health Records under Health Data and then click on the [employer] logo. HOW TO SAFELY DISPOSE OF PRESCRIPTION MEDICATIONS Please use one of the following methods to safely dispose of your unused medications. 1.Use a drug disposal kit: the drug disposal pouch allows you to safely discard your old and unused drugs. Ask your nurse to give you one when you are discharged.2.Visit a local take-back location: Many local pharmacies and police departments have programs that collect old and unwanted prescription drugs. Call your local pharmacy or go to http://[employer].Solar Flow-Through/4D9Xa2j to find one close to you.3.Make use of household items: Use cat litter or old coffee grounds to dispose medications if other options are not available. Mix your drugs with these household products, seal them in an airtight container and throw it into the garbage. Call [facility]: [phone] to be sure your drugs can be disposed of in this way. Some medicines may require a different approach.4.Never flush your medications down the toilet. IF YOU HAVE BEEN PRESCRIBED AN OPIOIDS FOR PAIN If you have been prescribed an opioid (such as hydrocodone, oxycodone or morphine), it is critical to understand the possible side effects and risks of opioid pain medications. Even when taken as directed, opioids can have several side effects including: Tolerance, meaning you might need to take more of a medication for the same pain relief. Nausea, vomiting and/or constipation. Sleepiness, dizziness, dry mouth, confusion, depression or itching. Physical dependence, meaning you have withdrawal symptoms when a medication is stopped ? this can develop within a few days. KNOW YOUR RESPONSIBILITIES It is important to know exactly how much and how often to take the opioid pain medications you are prescribed. Never take opioids in higher amounts or more often than prescribed. Do not combine opioids with alcohol or other drugs that cause drowsiness, such as benzodiazepines, also known as benzos, including diazepam and alprazolam, muscle relaxants or sleep aids. Never sell or share prescription opioids. This is illegal. Store opioids in a secure place and out of reach of others (including children, family, friends and visitors). The last page(s) of this document has been signed and retained as a CHART COPY Signatures Patient Education Materials Chest Wall Pain, Costochondritis Medication Leaflets My discharge plan and instructions have been reviewed and explained to me and I,MARIO SAINI understand my current condition and have read and understand these discharge instructions. I have received a written copy of the plan/instructions. If I have questions, I am aware that I should contact my doctor. Patient/Retail Seasonal Specialist Signature: Date/Time: Relationship to Patient: ___ Witness Name/Signature: Date/Time: [facility] 04-30-2025 Note Exam Date Time Procedure Performing Provider Status 04/30/25 10:04 PM XR Chest 2 Views YAO AMEZCUA DO; Michael hernandez (Verified) [id number] ORIGINAL EXAMINATION: TWO XRAY VIEWS OF THE CHEST04/30/2025 10:06 pm CHEST AP/PA and LATERAL COMPARISON: None. HISTORY: ORDERING SYSTEM PROVIDED HISTORY: Reason for Exam: CP FINDINGS: Lung volumes are slightly decreased, crowding bronchovascular markings. There is no focal consolidation, pneumothorax, or pleural effusion. Cardiomediastinal silhouette is normal in size and contour. No evidence of a displaced fracture. Soft tissues are unremarkable. IMPRESSION: No evidence of an acute cardiopulmonary abnormality. Interpreted by: Yao Amezcua Preliminary Report By: Yao Amezcua Electronically signed By Yao Amezcua Dictated Date: 04/30/2025 10:41:34 PM Prelim Date: 04/30/2025 10:43:13 PM Sign Date: 04/30/2025 10:43:13 PM Ordering Provider: DALI NOLEN [facility]01-15-2025 Evaluation + Plan note Diagnostic Tests Pending * Testosterone,Free and Total 11/30/24 [facility] 05-31-2024 Hospital Discharge instructions Patient Education 04/15/2024 10:31:07 Allergic Reaction, Other (General) General Allergic Reactions An allergic reaction is a set of symptoms caused by an allergen. An allergen is something that causes a person s immune system to react. When a person comes in contact with an allergen, it causes thebody to release chemicals. These include the chemical histamine. Histamine causes swelling and itching. It may affect the entire body. This is called a general allergic reaction. Often symptoms affect only 1 part of the body. This is called a local allergic reaction. You are having an allergic reaction. Almost anything can cause one. Different people are allergic to different things. It is usually something that you ate or swallowed, came into contact with by getting or putting it on your skin or clothes, or something you breathed in the air. This can be very annoying and sometimes scary. Most of us think of allergic reactions when we have a rash or itchy skin. Symptoms can include: Itching of the eyes, nose, and roof of the mouth Runny or stuffy nose Watery eyes Sneezing or coughing A blocked feeling in the ear Red, itchy rash called hives Red and purple spots Rash, redness, welts, blisters Itching, burning, stinging, pain Dry, flaky, cracking, scaly skin Severe symptoms include: Swelling of the face, lips, or other parts of the body Hoarse voice Trouble swallowing, feeling like your throat is closing Trouble breathing, wheezing Nausea, vomiting, diarrhea, stomach cramps Feeling faint or lightheaded, rapid heart rate Sometimes the cause may be obvious. But there are so many things that can cause a reaction that youmay not be able to figure out. The most important things to help find your allergen are: Remembering when it started What you were doing at the time or just before that Any activities you were involved in Any new products or contacts Below are some common causes. But remember that almost anything can cause a reaction. You may not even be aware that you came into contact with one of these things: Dust, mold, pollen Plants (common ones are poison trang and poison oak, but there are many others) Animals Foods such as shrimp, shellfish, peanuts, milk products, gluten, and eggs. Also food colorings, flavorings, and additives. Insect bites or stings such as bees, mosquitos, fleas, ticks Medicines such as penicillin, sulfa medicines, amoxicillin, aspirin, and ibuprofen. But any medicine can cause a reaction. Jewelry such as nickel or gold. This can be new, or something you ve worn for a while, including zippers and buttons. Latex such as in gloves, clothes, toys, balloons, or some tapes. Some people allergic to latex may also have problems with foods like bananas, avocados, kiwi, papaya, or chestnuts. Lotions, perfumes, cosmetics, soaps, shampoos, skincare products, nail products Chemicals or dyes in clothing, linen, scissors sharpener, hair dyes, soaps, iodine Many viruses and common colds can cause a rash that is not an allergic reaction. Sometimes it is hard to tell the difference between allergies, sensitivity, or an intolerance to something. This is especially true with food. Many things can cause diarrhea, vomiting, stomach cramps, and skin irritation. Home care The goal of treatment is to help relieve the symptoms and get you feeling better. The rash will usually fade over several days. But it can sometimes last a couple of weeks. Over the next couple of days, there may be times when it is gets a little worse, and then better again. Here are some things to do: If you know what you are allergic to, stay away from it. Future reactions could be worse than this one. Avoid tight clothing and anything that heats up your skin (hot showers or baths, direct sunlight). Heat will make itching worse. An ice pack will relieve local areas of intense itching and redness. To make an ice pack, put ice cubes in a plastic bag that seals at the top. Wrap it in a thin, clean towel. Don t put the ice directly on the skin because it can damage the skin. Oral diphenhydramine is an joah-qeq-jfqevcw antihistamine sold at pharmacy and grocery stores. Unless a prescription antihistamine was given, diphenhydramine may be used to reduce itching if large areas of the skin are involved. It may make you sleepy. So be careful using it in the daytime or when going to school, working, or driving. Note: Don t use diphenhydramine if you have glaucoma or if youare a man with trouble urinating due to an enlarged prostate. There are other antihistamines that won t make you so sleepy. These are good choices for daytime use. Ask your pharmacist for suggestions. Don t use diphenhydramine cream on your skin. It can cause a further reaction in some people. To help prevent an infection, don't scratch the affected area. Scratching may worsen the reaction and damage your skin. It can also lead to an infection. Always check the affected for signs of an infection. Call your healthcare provider and ask what you can use to help decrease the itching. To decrease allergic reactions, try the following: Use heat-steam to clean your home Use high-efficiency particulate (HEPA) vacuums and filters Stay away from food and pet triggers Kill any cockroaches Clean your house often Follow-up care Follow up with your healthcare provider, or as advised. If you had a severe reaction today, or if you have had several mild to medium allergic reactions in the past, ask your provider about allergy testing. This can help you find out what you are allergic to. If your reaction included dizziness, fainting, or trouble breathing or swallowing, ask your provider about carrying auto- injectable epinephrine. Call 911 Call 911 if any of these occur: Trouble breathing or swallowing, wheezing Cool, moist, pale skin Shortness of breath Hoarse voice or trouble speaking Confused Very drowsy or trouble awakening Fainting or loss of consciousness Rapid heart rate Feeling of dizziness or weakness or a sudden drop in blood pressure Feeling of doom Feeling lightheaded Severe nausea or vomiting, or diarrhea Seizure Swelling in the face, eyelids, lips, mouth, throat or tongue Drooling When to seek medical advice Call your healthcare provider right away if any of these occur: Spreading areas of itching, redness or swelling Nausea or stomach cramps or abdominal pain Continuing or recurring symptoms Spreading areas of redness, swelling, or itching Signs of infection at the affected site: oSpreading redness oIncreased pain or swelling oFluid or colored drainage from the site oFever of 100.4 F (38 C) or above lasting for 24 to 48 hours, or as directed by your provider [id number] [employer]. [address] [place] [address], [place] [address]. All rights reserved. This information is not intended as a substitute for professional medical care. Always follow yourhealthcare professional's instructions. Follow Up Care 04/15/2024 09:03:50 With:NICHO GEE Address: [address] [place] [phone] When:2-4 days [facility] 05-31-2024 Note Discharge Instructions Thank you for allowing [facility] to assist you with your healthcare needs. The following is importantdischarge information regarding your hospital visit. Diagnosis from Today's Visit Allergic reaction What to Do Next Instructions from Your Care Team No qualifying data available. Post Acute Orders No qualifying data available. You Need to Schedule the Following Appointments Follow Up with NICHO GEE When:Within 2-4 days Where:[address] [place] [id number] Allergies Latex Hives Percocet 5/325 itching, vomiting, nausea Topamax Irritability, HTN Medications Please ask your primary doctor or pharmacist before taking any other medication not listed, including over the counter drugs, herbal medications, vitamins and or supplements as they may interact withyour home medications. What How Much When Why Instructions Last Dose New famotidine (Pepcid 20 mg oral tablet) 1 tab(s) by mouth Two (2) times a day Duration: 7 Days Printed Prescription New methylPREDNISolone (Medrol Dosepak 4 mg oral tablet) 1 Packet(s) by mouth Once a day Duration: 6 Days as directed on package labeling Printed Prescription Unchanged amoxicillin (amoxicillin 500 mg oral capsule) 1 cap by mouth Three (3) times a day Duration: 7 Days Unchanged amphetamine-dextroamphetamine (Adderall 30 mg oral tablet) 1 tab(s) by mouth Two (2) times a day Unchanged cholecalciferol (Vitamin D3 1000 intl units oral tablet) 1 tab(s) by mouth Two (2) times a day Unchanged chondroitin-glucosamine (Chondroitin-Glucosamine) 1 cap by mouth Once a day Unchanged herbal/ nutritional product (flax seed oil 1000 mg oral capsule) 2,000 Milligram by mouth Every day Unchanged multivitamin (M.V.I. Adult) Unchanged omega-3 polyunsaturated fatty acids (Fish Oil 1000 mg oral capsule) 2 cap by mouth Once a day Unchanged predniSONE (predniSONE 50 mg oral tablet) 1 tab(s) by mouth Once a day with a meal Allergic reaction Duration: 5 Days Unchanged SUMAtriptan (Imitrex 25 mg oral tablet) 1 tab(s) by mouth Every day as needed for for migraine headache Unchanged traMADol (traMADol 50 mg oral tablet) 1 tab(s) by mouth Every 8 hours as needed for as needed for pain Unchanged venlafaxine (Effexor XR 37.5 mg oral capsule, extended release) 1 cap by mouth Once a day Please take this list to your next doctor s visit. Bring all medications you take, including over the counter medications, herbals and other supplements with you to your doctor s visit. Patients and families are reminded to discard old lists and to update any records with all medication providers or retail pharmacies. Medication Leaflets methylprednisolone (oral) (METH il pred NIS oh lone) Medrol, Medrol Dosepak, MethylPREDNISolone Dose Pack What is the most important information I should know about methylprednisolone? You should not use this medicine if you have a fungal infection anywhere in your body. What is methylprednisolone? Methylprednisolone is a steroid that prevents the release of substances in the body that cause inflammation. Methylprednisolone is used to treat many different inflammatory conditions such as arthritis, lupus, psoriasis, ulcerative colitis, allergic disorders, gland (endocrine) disorders, and conditions that affect the skin, eyes, lungs, stomach, nervous system, or blood cells. Methylprednisolone may also be used for purposes not listed in this medication guide. What should I discuss with my healthcare provider before taking methylprednisolone? You should not use methylprednisolone if you are allergic to it, or if you have: a fungal infection anywhere in your body. Methylprednisolone can weaken your immune system, making it easier for you to get an infection. Steroids can also worsen an infection you already have, or reactivate an infection you recently had. Tell your doctor about any illness or infection you have had within the past several weeks. To make sure methylprednisolone is safe for you, tell your doctor if you have ever had: a thyroid disorder; herpes infection of the eyes; stomach ulcers, ulcerative colitis, or diverticulitis; depression, mental illness, or psychosis; liver disease (especially cirrhosis); high blood pressure; osteoporosis; a muscle disorder such as myasthenia gravis; or multiple sclerosis. Also tell your doctor if you have diabetes. Steroid medicines may increase the glucose (sugar) levels in your blood or urine. You may also need to adjust the dose of your diabetes medications. It is not known whether this medicine will harm an unborn baby. Tell your doctor if you are or plan to become . It is not known whether methylprednisolone passes into breast milk or if it could affect the nursing baby. Tell your doctor if you are breast-feeding. How should I take methylprednisolone? Follow all directions on your prescription label. Your doctor may occasionally change your dose. Donot use this medicine in larger or smaller amounts or for longer than recommended. Methylprednisolone is sometimes taken every other day. Follow your doctor's dosing instructions very carefully. Your dose needs may change if you have unusual stress such as a serious illness, fever or infection, or if you have surgery or a medical emergency. Tell your doctor about any such situation that affects you. This medicine can cause unusual results with certain medical tests. Tell any doctor who treats you that you are using methylprednisolone. You should not stop using methylprednisolone suddenly. Follow your doctor's instructions about tapering your dose. Wear a medical alert tag or carry an ID card stating that you take methylprednisolone. Any medical care provider who treats you should know that you take steroid medication. If you need surgery, tell the surgeon ahead of time that you are using methylprednisolone. You may need to stop using the medicine for a short time. Store at room temperature away from moisture and heat. What happens if I miss a dose? Call your doctor for instructions if you miss a dose of methylprednisolone. What happens if I overdose? Seek emergency medical attention or call the Poison Help line at . An overdose of methylprednisolone is not expected to produce life threatening symptoms. However, half-way use of high steroid doses can lead to symptoms such as thinning skin, easy bruising, changesin the shape or location of body fat (especially in your face, neck, back, and waist), increased acne or facial hair, menstrual problems, impotence, or loss of interest in sex. What should I avoid while taking methylprednisolone? Avoid being near people who are sick or have infections. Call your doctor for preventive treatment if you are exposed to chicken pox or measles. These conditions can be serious or even fatal in people who are using steroid medication. Do not receive a 'live' vaccine while using methylprednisolone. The vaccine may not work as well during this time, and may not fully protect you from disease. Live vaccines include measles, mumps, rubella (MMR), polio, rotavirus, typhoid, yellow fever, varicella (chickenpox), zoster (shingles), andnasal flu (influenza) vaccine. What are the possible side effects of methylprednisolone? Get emergency medical help if you have signs of an allergic reaction: hives; difficult breathing; swelling of your face, lips, tongue, or throat. Call your doctor at once if you have: shortness of breath (even with mild exertion), swelling, rapid weight gain; bruising, thinning skin, or any wound that will not heal; blurred vision, tunnel vision, eye pain, or seeing halos around lights; severe depression, changes in personality, unusual thoughts or behavior; new or unusual pain in an arm or leg or in your back; bloody or tarry stools, coughing up blood or vomit that looks like coffee grounds; seizure (convulsions); or low potassium--leg cramps, constipation, irregular heartbeats, fluttering in your chest, increased thirst or urination, numbness or tingling. Steroids can affect growth in children. Tell your doctor if your child is not growing at a normal rate while using this medicine. Common side effects may include: fluid retention (swelling in your hands or ankles); dizziness, spinning sensation; changes in your menstrual periods; headache; mild muscle pain or weakness; or stomach discomfort, bloating. This is not a complete list of side effects and others may occur. Call your doctor for medical advice about side effects. You may report side effects to FDA at 2-814-CRW-5022. What other drugs will affect methylprednisolone? Other drugs may interact with methylprednisolone, including prescription and nczr-tmw-dtzqmey medicines, vitamins, and herbal products. Tell each of your health care providers about all medicines youuse now and any medicine you start or stop using. Where can I get more information? Your pharmacist can provide more information about methylprednisolone. Remember, keep this and all other medicines out of the reach of children, never share your medicines with others, and use this medication only for the indication prescribed. Every effort has been made to ensure that the information provided by [employer]. [employer]') is accurate, up-to-date, and complete, but no guarantee is made to that effect. Drug information contained herein may be time sensitive. [employer] information has been compiled for use by healthcare practitioners and consumers in the [place] and therefore [employer] does not warrant that uses outside of the [place] are appropriate, unless specifically indicated otherwise. [employer]'s drug information does not endorse drugs, diagnose patients or recommend therapy. [employer] drug information isan informational resource designed to assist licensed healthcare practitioners in caring for their p atients and/or to serve consumers viewing this service as a supplement to, and not a substitute for, the expertise, skill, knowledge and judgment of healthcare practitioners. The absence of a warningfor a given drug or drug combination in no way should be construed to indicate that the drug or drug combination is safe, effective or appropriate for any given patient. [employer] does not assume any responsibility for any aspect of healthcare administered with the aid of information [employer] provides. The information contained herein is not intended to cover all possible uses, directions, precautions, warnings, drug interactions, allergic reactions, or adverse effects. If you have questions about the drugs you are taking, check with your doctor, nurse or pharmacist. Copyright 0780-9221 [employer]. Version: 9.01. Revision Date: 07/15/2017. famotidine (oral/injection) (fam [place] ti imani) Heartburn Relief, Pepcid, Pepcid AC, Pepcid AC Maximum Strength, Zantac 360 What is the most important information I should know about famotidine? Follow all directions on the label and package. Use exactly as directed. What is famotidine? Famotidine is used to treat and prevent ulcers in the stomach and intestines. It also treats conditions in which the stomach produces too much acid, such as Ethan-Cleaning syndrome. Famotidine also treats gastroesophageal reflux disease (GERD) and other conditions in which acid backs up from the stomach into the esophagus, causing heartburn. The Zantac 360 brand of this medicine does not contain ranitidine, a medicine that was withdrawn from market in the [place]. Famotidine may also be used for purposes not listed in this medication guide. What should I discuss with my healthcare provider before taking famotidine? Heartburn can feel like a heart attack. Get emergency medical help if you have chest pain that spreads to your jaw or shoulder. You should not use this medicine if you are allergic to famotidine or similar medicines such as ranitidine (Zantac), cimetidine (Tagamet), or nizatidine (Axid). Ask a doctor or pharmacist if this medicine is safe to use if you have: kidney disease; liver disease; cancer stomach; or long QT syndrome (in you or a family member). Ask a doctor before using this medicine if you are or . How should I take famotidine? Use exactly as directed on the label, or as prescribed by your doctor. Famotidine oral is taken by mouth. Famotidine injection is given in a vein if you are unable to take the medicine by mouth. You may take famotidine oral with or without food. Measure liquid medicine with the supplied syringe or a dose-measuring device (not a kitchen spoon). Most ulcers heal within 4 weeks of famotidine treatment, but it may take up to 8 weeks of using this medicine before your ulcer heals. Keep using the medication as directed. Call your doctor if the condition you are treating with famotidine does not improve, or if it gets worse while using famotidine. Your treatment may also include changes in diet or lifestyle habits. Follow all instructions of your doctor or dietitian. Store at room temperature away from moisture, heat, and light. Do not allow the liquid medicine to freeze. Throw away any unused famotidine liquid that is older than 30 days. What happens if I miss a dose? Take the medicine as soon as you can, but skip the missed dose if it is almost time for your next dose. Do not take two doses at one time. What happens if I overdose? Seek emergency medical attention or call the Poison Help line at . What should I avoid while taking famotidine? Drinking alcohol may increase the risk of damage to your stomach. Avoid taking other stomach acid reducers unless your doctor has told you to. However, you may take an antacid (such as Maalox, Mylanta, Gaviscon, Milk of Magnesia, Rolaids, or Tums) with famotidine. What are the possible side effects of famotidine? Get emergency medical help if you have signs of an allergic reaction: hives; difficult breathing; swelling of your face, lips, tongue, or throat. Stop using famotidine and call your doctor at once if you have: confusion, hallucinations, agitation, lack of energy; a seizure; fast or pounding heartbeats, sudden dizziness (like you might pass out); or unexplained muscle pain, tenderness, or weakness especially if you also have fever, unusual tiredness, and dark colored urine. Some side effects may be more likely in older adults and in people who have severe kidney disease. Common side effects may include: headache; dizziness; or constipation or diarrhea. This is not a complete list of side effects and others may occur. Call your doctor for medical advice about side effects. You may report side effects to FDA at 8-113-ZSF-3172. What other drugs will affect famotidine? Famotidine oral can make it harder for your body to absorb other medicines you take by mouth. Tell your doctor if you are taking: cefditoren; dasatinib; delavirdine; fosamprenavir; or tizanidine (if you are taking famotidine liquid). This list is not complete. Other drugs may affect famotidine, including prescription and jbui-qdi-nuxrogp medicines, vitamins, and herbal products. Not all possible drug interactions are listed here. Where can I get more information? Your doctor or pharmacist can provide more information about famotidine. Remember, keep this and all other medicines out of the reach of children, never share your medicines with others, and use this medication only for the indication prescribed. Every effort has been made to ensure that the information provided by [employer] is accurate, up-to-date, and complete, but no guarantee is made to that effect. Drug information contained herein may be time sensitive. [employer] information has been compiled for use by healthcare practitioners and consumers in the [place] and therefore [employer] does not warrant that uses outside of the [place] are appropriate, unless specifically indicated otherwise. [employer] drug information does not endorse drugs, diagnose patients or recommend therapy. [employer] drug information isan informational resource designed to assist licensed healthcare practitioners in caring for their p atients and/or to serve consumers viewing this service as a supplement to, and not a substitute for, the expertise, skill, knowledge and judgment of healthcare practitioners. The absence of a warningfor a given drug or drug combination in no way should be construed to indicate that the drug or drug combination is safe, effective or appropriate for any given patient. [facility] does not assume any responsibility for any aspect of healthcare administered with the aid of information [facility] provides. The information contained herein is not intended to cover all possible uses, directions, precautions, warnings, drug interactions, allergic reactions, or adverse effects. If you have questions about the drugs you are taking, check with your doctor, nurse or pharmacist. Copyright [facility] [employer] ([employer]). Version: . Revision Date: 06/08/2023. Education Materials General Allergic Reactions An allergic reaction is a set of symptoms caused by an allergen. An allergen is something that causes a person s immune system to react. When a person comes in contact with an allergen, it causes thebody to release chemicals. These include the chemical histamine. Histamine causes swelling and itching. It may affect the entire body. This is called a general allergic reaction. Often symptoms affect only 1 part of the body. This is called a local allergic reaction. You are having an allergic reaction. Almost anything can cause one. Different people are allergic to different things. It is usually something that you ate or swallowed, came into contact with by getting or putting it on your skin or clothes, or something you breathed in the air. This can be very annoying and sometimes scary. Most of us think of allergic reactions when we have a rash or itchy skin. Symptoms can include: Itching of the eyes, nose, and roof of the mouth Runny or stuffy nose Watery eyes Sneezing or coughing A blocked feeling in the ear Red, itchy rash called hives Red and purple spots Rash, redness, welts, blisters Itching, burning, stinging, pain Dry, flaky, cracking, scaly skin Severe symptoms include: Swelling of the face, lips, or other parts of the body Hoarse voice Trouble swallowing, feeling like your throat is closing Trouble breathing, wheezing Nausea, vomiting, diarrhea, stomach cramps Feeling faint or lightheaded, rapid heart rate Sometimes the cause may be obvious. But there are so many things that can cause a reaction that youmay not be able to figure out. The most important things to help find your allergen are: Remembering when it started What you were doing at the time or just before that Any activities you were involved in Any new products or contacts Below are some common causes. But remember that almost anything can cause a reaction. You may not even be aware that you came into contact with one of these things: Dust, mold, pollen Plants (common ones are poison trang and poison oak, but there are many others) Animals Foods such as shrimp, shellfish, peanuts, milk products, gluten, and eggs. Also food colorings, flavorings, and additives. Insect bites or stings such as bees, mosquitos, fleas, ticks Medicines such as penicillin, sulfa medicines, amoxicillin, aspirin, and ibuprofen. But any medicine can cause a reaction. Jewelry such as nickel or gold. This can be new, or something you ve worn for a while, including zippers and buttons. Latex such as in gloves, clothes, toys, balloons, or some tapes. Some people allergic to latex may also have problems with foods like bananas, avocados, kiwi, papaya, or chestnuts. Lotions, perfumes, cosmetics, soaps, shampoos, skincare products, nail products Chemicals or dyes in clothing, linen, scissors sharpener, hair dyes, soaps, iodine Many viruses and common colds can cause a rash that is not an allergic reaction. Sometimes it is hard to tell the difference between allergies, sensitivity, or an intolerance to something. This is especially true with food. Many things can cause diarrhea, vomiting, stomach cramps, and skin irritation. Home care The goal of treatment is to help relieve the symptoms and get you feeling better. The rash will usually fade over several days. But it can sometimes last a couple of weeks. Over the next couple of days, there may be times when it is gets a little worse, and then better again. Here are some things to do: If you know what you are allergic to, stay away from it. Future reactions could be worse than this one. Avoid tight clothing and anything that heats up your skin (hot showers or baths, direct sunlight). Heat will make itching worse. An ice pack will relieve local areas of intense itching and redness. To make an ice pack, put ice cubes in a plastic bag that seals at the top. Wrap it in a thin, clean towel. Don t put the ice directly on the skin because it can damage the skin. Oral diphenhydramine is an hybz-pkz-fpdkhft antihistamine sold at pharmacy and grocery stores. Unless a prescription antihistamine was given, diphenhydramine may be used to reduce itching if large areas of the skin are involved. It may make you sleepy. So be careful using it in the daytime or when going to school, working, or driving. Note: Don t use diphenhydramine if you have glaucoma or if youare a man with trouble urinating due to an enlarged prostate. There are other antihistamines that won t make you so sleepy. These are good choices for daytime use. Ask your pharmacist for suggestions. Don t use diphenhydramine cream on your skin. It can cause a further reaction in some people. To help prevent an infection, don't scratch the affected area. Scratching may worsen the reaction and damage your skin. It can also lead to an infection. Always check the affected for signs of an infection. Call your healthcare provider and ask what you can use to help decrease the itching. To decrease allergic reactions, try the following: Use heat-steam to clean your home Use high-efficiency particulate (HEPA) vacuums and filters Stay away from food and pet triggers Kill any cockroaches Clean your house often Follow-up care Follow up with your healthcare provider, or as advised. If you had a severe reaction today, or if you have had several mild to medium allergic reactions in the past, ask your provider about allergy testing. This can help you find out what you are allergic to. If your reaction included dizziness, fainting, or trouble breathing or swallowing, ask your provider about carrying auto- injectable epinephrine. Call 911 Call 911 if any of these occur: Trouble breathing or swallowing, wheezing Cool, moist, pale skin Shortness of breath Hoarse voice or trouble speaking Confused Very drowsy or trouble awakening Fainting or loss of consciousness Rapid heart rate Feeling of dizziness or weakness or a sudden drop in blood pressure Feeling of doom Feeling lightheaded Severe nausea or vomiting, or diarrhea Seizure Swelling in the face, eyelids, lips, mouth, throat or tongue Drooling When to seek medical advice Call your healthcare provider right away if any of these occur: Spreading areas of itching, redness or swelling Nausea or stomach cramps or abdominal pain Continuing or recurring symptoms Spreading areas of redness, swelling, or itching Signs of infection at the affected site: oSpreading redness oIncreased pain or swelling oFluid or colored drainage from the site oFever of 100.4 F (38 C) or above lasting for 24 to 48 hours, or as directed by your provider [id number] [employer]. [address] [place] [address], [place] [address]. All rights reserved. This information is not intended as a substitute for professional medical care. Always follow yourhealthcare professional's instructions. Additional Information VACCINATE! IT SAVES LIVES! Members of the community who have not yet received the COVID-19 vaccine and would like to receive it can visit one of [facility] vaccine clinics. There are many vaccine clinic locations within the [facility]. For locations and available times, please visit [email or web address] It is important to note that some COVID mobile vaccine clinics are held outdoors and may be canceled in rainy or stormy conditions. To learn more about pediatric vaccinations (ages 5-11), we invite you to visit the [facility] webpage. [email or web address] learn more about the COVID-19 vaccine, we invite you to visit the CDC website for a list of frequently asked questions. https://www.cdc.gov/coronavirus/2019-ncov/vaccines/faq.html [facility] Patient Portal Access Instructions: Stay connected with your healthcare team and access your personal medical information anytime with the [email or web address] Patient Portal. If you would like a full copy of your medical records please contact the [facility] Medical Records Department Thursday through Thursday between 8a.m. and 4:30p.m. Please follow the directions below to access the portal: 1.Access the email account you provided upon [facility] to the [facility].2.Look for an invitation email from [facility].3.Open the email and access the invitation link: Accept Invitation to [email or web address]4.Fill in the required cook to create your account. Sign into [email or web address] with your username and password that you created in the above steps to stay up to date. You can then view a summary of results, a summary of your visits, and the ability to download your summaries to your computer or send the information securely to a physician. Remember that your healthcare information is confidential, so carefully consider who you will allow to register on the [facility] Patient Portal for access to your information. You can also access the [facility] Patient Portal on the [employer]. Simply click on Health Records under [employer] and then click on the [employer] logo. HOW TO SAFELY DISPOSE OF PRESCRIPTION MEDICATIONS Please use one of the following methods to safely dispose of your unused medications. 1.Use a drug disposal kit: the drug disposal pouch allows you to safely discard your old and unuseddrugs. Ask your nurse to give you one when you are discharged.2.Visit a local take-back location: Many local pharmacies and police departments have programs that collect old and unwanted prescriptiondrugs. Call your local pharmacy or go to http://[email or web address]olar Flow-Through/3P8Xu1x to find one close to you.3.Make use of household items: Use cat litter or old coffee grounds to dispose medications if other options arenot available. Mix your drugs with these household products, seal them in an airtight container andthrow it into the garbage. Call [facility]: [phone] to be sure your drugs can be disposed of in this way. Some medicines may require a different approach.4.Never flush your medications down the toilet. IF YOU HAVE BEEN PRESCRIBED AN OPIOIDS FOR PAIN If you have been prescribed an opioid (such as hydrocodone, oxycodone or morphine), it is critical to understand the possible side effects and risks of opioid pain medications. Even when taken as directed, opioids can have several side effects including: Tolerance, meaning you might need to take more of a medication for the same pain relief. Nausea, vomiting and/or constipation. Sleepiness, dizziness, dry mouth, confusion, depression or itching. Physical dependence, meaning you have withdrawal symptoms when a medication is stopped ? this can develop within a few days. KNOW YOUR RESPONSIBILITIES It is important to know exactly how much and how often to take the opioid pain medications you are prescribed. Never take opioids in higher amounts or more often than prescribed. Do not combine opioids with alcohol or other drugs that cause drowsiness, such as benzodiazepines, also known as benzos,including diazepam and alprazolam, muscle relaxants or sleep aids. Never sell or share prescriptionopioids. This is illegal. Store opioids in a secure place and out of reach of others (including children, family, friends and visitors). The last page(s) of this document has been signed and retained as a CHART COPY Signatures Patient Education Materials Allergic Reaction, Other (General) Medication Leaflets methylprednisolone (oral), famotidine (oral/injection) My discharge plan and instructions have been reviewed and explained to me and I,MARIO SAINI understand my current condition and have read and understand these discharge instructions. I have received a written copy of the plan/instructions. If I have questions, I am aware that I should contact my doctor. Patient/Retail Seasonal Specialist Signature: Date/Time: Relationship to Patient: Witness Name/Signature: Date/Time: [facility]02-17-2022 Hospital Discharge instructions Patient Education 01/02/2022 13:24:15 Laceration, Hand: All Closures Hand Laceration: All Closures A laceration is a cut through the skin. Deep cuts usually require stitches. Minor cuts may be closed with surgical tape or skin adhesive. X-rays may be done if something may have entered the skin through the cut, such as broken glass. You may also be given a tetanus shot if you are not up to date on this vaccination and the object thatcut you may carry tetanus. Home care Your healthcare provider may prescribe an antibiotic. This is to help prevent infection. Follow allinstructions for taking this medicine. Take the medicine every day until it is gone or you are toldto stop. You should not have any left over. The healthcare provider may prescribe medicines for pain. Follow instructions for taking them. Follow the healthcare provider s instructions on how to care for the cut. Keep the wound clean and dry. Don't get the wound wet until you are told it is OK to do so. If the bandage gets wet, remove it. Gently pat the wound dry with a clean cloth. Then put on a clean, dry bandage. To help prevent infection, wash your hands with soap and water before and after caring for the wound. Caring for stiches: Once you no longer need to keep the stitches dry, clean the wound daily. First,remove the bandage. Then wash the area gently with soap and warm water, or as directed by the healthcare provider. Use a wet cotton swab to loosen and remove any blood or crust that forms. After cleaning, apply a thin layer of antibiotic ointment if advised. Then put on a new bandage unless you aretold not to. Caring for skin glue: Don t put apply liquid, ointment, or cream on the wound while the glue is in place. Avoid activities that cause heavy sweating. Protect the wound from sunlight. Don't scratch, rub, or pick at the adhesive film. Don't place tape directly over the film. The glue should peel off within 5 to 10 days. Caring for surgical tape: Keep the area dry. If it gets wet, blot it dry with a clean towel. Surgical tape usually falls off within 7 to 10 days. If it has not fallen off after 10 days, you can take it off yourself. Put mineral oil or petroleum jelly on a cotton ball and gently rub the tape until it is removed. Once you can get the wound wet, you may shower as usual, but don't soak the wound in water. This means no tub baths or swimming. Even with proper treatment, a wound infection may sometimes occur. Check the wound daily for signs of infection listed below. Follow-up care Follow up with your healthcare provider, or as advised. If you have stitches, be sure to return as directed to have them removed. When to seek medical advice Call your healthcare provider right away if any of these occur: Wound bleeding not controlled by direct pressure Signs of infection, including increasing pain in the wound, increasing wound redness or swelling, or pus or bad odor coming from the wound Fever of 100.4 F (38. C) o higher, or as directed by your healthcare provider Stitches come apart or fall out or surgical tape falls off before 7 days Wound edges reopen Wound changes colors Numbness or weakness in the affected hand Decreased movement of the hand [id number] [employer]. [address] [place] [address]. All rights reserved. This information is not intended as a substitute for professional medical care. Always follow yourhealthcare professional's instructions. Follow Up Care 01/02/2022 12:44:36 With:NICHO GEE Address: [address] [place] [phone] Business (1) When:5-7 days Comments:Keep wound clean and dry. Sutures are absorbable and will resolve by themselves, return if worsening severe pain swelling bleeding pus or other concerning symptoms. [facility] 12-22-2021 Hospital Discharge instructions Patient Education 11/06/2021 10:51:25 Allergic Reaction, Drug Medicine Reaction: Allergic You are having an allergic reaction to a medicine you have taken. This may cause an itchy rash and sometimes swelling of various parts of the body. It could also cause trouble swallowing or breathing. The rash may take a few hours or up to 2 weeks to go away. In the future, remember to tell your healthcare provider about your allergy to this medicine so that medicines of this type won't be used again. Any medicine can cause an allergic reaction. But the most allergic reactions are caused by: Penicillin and related medicines Aspirin Ibuprofen Seizure medicines Vaccines may also trigger allergies. People whose parents or siblings have allergies are at a higher risk of developing a medicine allergy. Allergy testing may sometimes be needed to figure out the cause. Symptoms may occur within minutes, hours, or even weeks after exposure to the medicine. It can be amild or severe reaction, or potentially life threatening. Most of us think of allergic reactions when we have a rash or itchy skin. Symptoms can include: Rash, hives, redness, welts, blisters Itching, burning, stinging, pain Dry, flaky, cracking, scaly skin Belly (abdominal) cramps or nausea or stomach pain Fever. Sometimes fever is the only symptom of a drug reaction. In older adults, the risk of fever increases with the number of medicines the person takes. More severe symptoms include: Swelling of the face or lips, or drooling Trouble swallowing, feeling like your throat is closing Trouble breathing, wheezing Hoarse voice or trouble speaking Severe nausea or vomiting or diarrhea Feeling faint or lightheaded, rapid heart rate Blistering of the skin, or ulcers in the mouth or on the genitals Home care The goal of treatment is to help relieve the symptoms, and get you feeling better. Mild to medium medicine reactions usually respond quickly to antihistamines, steroids, and stopping the medicine. The rash will usually fade over several days. But it can sometimes last a couple of weeks. Over the next couple of days, there may be times when it is gets a little worse, and then better again. Here are some things to do: Throw the medicine away and don t take it again. The next reaction could be the same or worse. Call your health care provider to discuss adding this medicine allergy reaction to your electronic medical record. When getting a new medicine, always tell the healthcare provider that you are allergic to this medicine. Make certain the provider writes it down in your medical record. Avoid tight clothing and anything that heats up your skin (hot showers or baths, direct sunlight). Heat will make itching worse. An ice pack will relieve local areas of intense itching and redness. To make an ice pack, put ice cubes in a plastic bag that seals at the top. Wrap the bag in a clean, thin towel or cloth. Don t putice directly on the skin. To help prevent an infection, don't scratch the affected area. Scratching may worsen the reaction. It can damage your skin and lead to an infection. Always check the affected site for signs of an infection. Your provider may give you a prescription antihistamine. If you are not given a prescription antihistamine, oral diphenhydramine is an [id number]-cfm-drnnsxk antihistamine available at pharmacies and grocery stores. This may be used to reduce itching if large areas of the skin are involved. This antihistamine may make you sleepy, so be careful using it in the daytime or when going to school, working, or driving. Note: Don t use diphenhydramine if you have glaucoma or if you are a man with trouble urinating due to an enlarged prostate. There are other antihistamines that cause less drowsiness and are a good choice for daytime use. Ask your pharmacist or health care provider for suggestions. Don't use diphenhydramine cream on your skin. It can cause a further skin reaction for some people. Contact your healthcare provider and ask what can be used on the affected area to help decrease theitching. Follow-up care Follow up with your healthcare provider, or as advised if your symptoms do not continue to improve or they get worse. Call 911 Call 911 if any of these occur: Shortness of breath Cool, moist, pale skin Swelling in the face, eyelids, mouth, tongue, or lips Drooling Trouble breathing or swallowing, wheezing New or worsening swelling in the mouth, throat, or tongue Hoarse voice or trouble speaking Fainting or loss of consciousness Rapid heart rate Feeling of dizziness or weakness or a sudden drop in blood pressure Feeling of doom Feeling lightheaded Severe nausea, vomiting, or diarrhea When to seek medical advice Call your healthcare provider right away if any of these occur: Continuing or recurring symptoms Nausea, abdominal cramps or stomach pain Spreading areas of itching, redness or swelling Blistering of the skin or sores or ulcers in the mouth or on the genitals Signs of infection: oSpreading redness oIncreased pain or swelling oFever of 100.4 F (38 C) or above lasting for 24 to 48 hours, or as directed by your provider oFluid or colored drainage from the affected area [id number] [employer]. [address] [place] [address]. All rights reserved. This information is not intended as a substitute for professional medical care. Always follow yourhealthcare professional's instructions. Follow Up Care 11/06/2021 08:45:44 With:NICHO GEE Address: [address] [place] [address] [phone] When:2-4 days [facility] 12-02-2021 [facility] Medical Records Department [address] [place] [address] History Physical Exam 10/17/21 0549 MR#: [id number] Acct: [id number] Name: SAINI,MARIO OCHOA Rep #: [id number] : 1970 50 From: Jovan Kumar MD PCP: [facility] Status:[facility] Location: [place] [address] History and Physical Date of Admission: 10/17/21 Intake Visit Reasons: CSCOPE Chief Complaint: colonoscopy, hx polyps Environmental Intern Required: No Is patient in pain?: No Allergies hydrocodone Allergy (Verified 09/19/21 08:43) Itching oxycodone Allergy (Verified 09/19/21 08:43) Itching topiramate [From Topamax] Adverse Reaction (Mild, Verified 09/19/21 08:43) altered mental status Medications ibuprofen 200 mg capsule 200 mg PO Q6H PRN 04/26/20 [History Confirmed 09/19/21] dextroamphetamine-amphetamine 20 mg tablet 20 mg PO DAILY 09/19/21 [History Confirmed 09/19/21] dextroamphetamine-amphetamine ER 30 mg 24hr capsule,extend release 30 mg PO DAILY cap 09/19/21 [History Confirmed 09/19/21] PFSH Medical History (Updated 09/19/21 @ 08:[address] Jovan Kumar MD) Bloody stools Hemorrhoids Knee pain neck and back pain Plantar fasciitis Severe headache Shoulder pain Surgical History (Updated 09/19/21 @ 08:47 by Buffy Lopez) History of ankle surgery History of appendectomy History of colonoscopy Family History (Updated 09/19/21 @ 08:47 by Buffy Lopez) Mother Diabetes Brother Diabetes Social History Smoking Status: Never smoker Smokeless tobacco user: chewing tobacco alcohol intake: current HPI HPI HPI: MARIO SANII, is a 50 M who presents to the office today for surgical consultation regarding colonoscopy. The patient is referred by the [place] medical [facility] and a written copy of my consult and recommendations will return to them. He occasionally will have some rectal bleeding. It will be on the tissue. It is painless. Previous colonoscopy was done in the [facility] not quite 10 years ago. There is a history however of colon polyps. 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 He is currently taking care of his children at home. He denies abdominal pain. He has had head trauma and states that he has had a remote stroke but that it did not leave him with any deficit. ROS General General: No weight change, appetite, fatigue, colon cancer, breast cancer or weakness HEENT HEENT: No difficulty swallowing, eye injury, eye surgery, swollen glands or hoarseness Endo Endocrine: No thyroid disease, diabetes mellitus, thyroid cancer, Hair loss, heat intolerance or cold intolerance Musc Musculoskeletal: Yes back problems and arthritis; No rheumatoid arthritis, gout or joint pain Cardio Cardiovascular: No murmur, pacemaker, heart disease, atrial fibrillation, high blood pressure, heart attack, heart stent, palpitations, shortness of breat with exertion or chest pain Psych Psychiatric: No depression, anxiety or hearing voices Resp Respiratory: No shortness of breath, No sleep apnea, No cough, No COPD, No asthma, No emphysema and No wheezing Gastro Gastrointestinal: No abdominal pain, No nausea or vomiting, Yes diarrhea, No constipation, Yes blood in stool, No acid reflux, Yes hemorrhoids, Yes ulcers, No gallbladder problem and No black,tarry stools Rc Hematologic: No blood thinners, No blood disorders, No bleeding, No anemia and No blood clots Neuro Neurologic: No weakness Exam Const General: cooperative, healthy appearing, comfortable and no acute distress Nutritional Appearance: overweight Orientation: alert and awake HENUT Head: normal to inspection Chest Chest palpation inspection: normal inspection of the chest Resp Effort Inspection: normal respiratory effort Auscultation: clear to auscultation bilaterally Cardio Rate: regular rate GI Palpation: soft and no hepatosplenomegaly Auscultation: normal bowel sounds Neuro General: patient alert and patient awake Extrem General: no calf tenderness Psych Mood: anxious mood Assessment and Plan Assessment and Plan (1) Screening for intestinal cancer: Status: Acute Plan - Dr. Jovan Kumar MD: I recommended the patient a screening colonoscopy with possible biopsy or polypectomy as indicated. It is likely his infrequent blood on the tissue paper secondary to anal rectal disease likely hemorrhoids. He does report of history of polyps. He is retired from the . He has been provided a bowel prep through the [facility] with movie prep. He is not on any anticoagulants. I appreciate the opportunity of assisting with his surgical care. He is considering obtaining the COVID-19 vaccine. He has previously had COVID-19 based upon symptoms and subsequent positive serum antibodies. It has bee (more content not included)...[facility] Evaluation + Plan note No data available for this section [facility] Evaluation noteThere may be information available, but it has not been provided by the sender.[facility] Work Phone: Hospital Discharge instructions No data available for this section [facility] Instructions* Instruction Description Start Date Patient advised to follow-up with Primary Care Physician for BMI management. [facility] Work Phone: InstructionsNo information available.[facility] Work Phone: Progress note No data available for this section [facility] Summary Purpose Family History No Family History Records FoundNo Family History Records FoundThere may be information available, but it has not been provided by the sender.There may be information available, but it has not been provided by the sender. No data available for this section No data available for this section No Family History Records Found No data available for this section No data available for this section No Family History Records Found Advance Directives No Advanced Directives Records FoundNo Advanced Directives Records FoundThere may be information available, but it has not been provided by the sender.There may be information available, but it has not been provided by the sender.No Advanced Directives Records FoundNo Advanced Directives Records Found Chief Complaint Chief Complaint Description Start Date right ankle pain Preliminary chief co mplaint data, not yet signed by the author as of Chief Complaint Description Start Date right ankle pain Preliminary chief co mplaint data, not yet signed by the author as of Additional Source Comments (unrecognized sect ion and content) No Status Records FoundNo Status Records FoundNo Status Records FoundNo Status Records Found INFORMATION SOURCE (unrecogn ized section and content) DATE CREATED AUTHOR 01/28/2019 [facility] DATE CREATED AUTHOR AUTHOR'S ORGANIZ ATION 12/28/2021 [facility] DATE CREATED AUTHOR AUTHOR'S ORGANIZ ATION 06/30/2024 [facility] ([place] DATE CREATED AUTHOR AUTHOR'S ORGANIZ ATION 05/10/2025 [facility] Reason for Visit (unrecogniz ed section and content) Reason For Visit Description Follow-up by complaint Preliminary reason f or visit data, not yet signed by the author as of right ankle pain Reason For Visit Description Start Date Follow-up by complaint Preliminary reason f or visit data, not yet signed by the author as of right ankle pain Patient Care team informatio n (unrecognized section and content) Care Team Personnel Name: NICHO GEE Member Role: Primary Care Physician Address: Address: [address] [place] [address] [address] [place], [place] [address] Care Team Related Persons Name: SOHEILA MELVIN Care Team Personnel Name: PHYSICIAN, NOT RECORDED Member Role: Primary Care Physician Care Team Related Persons Name: SOHEILA MELVIN Care Team Personnel Name: PHYSICIAN, NOT RECORDED Member Role: Primary Care Physician Care Team Related Persons Name: SOHEILA MELVIN Care Team Personnel Name: PHYSICIAN, NOT RECORDED Member Role: Primary Care Physician Care Team Related Persons Name: SOHEILA MELVIN FOR RECORDS PERTAINING TO PATIENTS WHO ARE OR HAVE BEEN ENROLLED IN A CHEMICAL DEPENDENCY/SUBSTANCEABUSE PROGRAM, SOME INFORMATION MAY BE OMITTED. This clinical summary was aggregated from multiple sources. Caution should be exercised in using it in the provision of clinical care. This summary normalizes information from multiple sources, and as a consequence, information in this document may materially change the coding, format and clinical context of patient data. In addition, data may be omitted in some cases. CLINICAL DECISIONS SHOULD BE BASED ON THE PRIMARY CLINICAL RECORDS. [facility] [employer] provides no warranty or guarantee of the accuracy or completeness of information in this document.
--- NOTE | 2025-11-10 12:36 | MRI_ITS ---
PROCEDURE: LOWER EXT JOINT ONLY (ROUTINE) 11/10/2025 REASON FOR EXAM: RIGHT KNEE PAIN TECHNIQUE: Procedure Code: MRILEJ Modality: MR Procedure: LOWER EXT JOINT ONLY (ROUTINE) Multiplanar and multisequence images were obtained without IV contrast administration. COMPARISON: COMPARISON : None provided. FINDINGS: Bone and bone marrow: Overall mild degenerative changes are seen of the lateral compartment, but with a proximally 9 mm moderately severe to severe cartilage defect at the articular aspect of the lateral femoral condyle noted. The patellofemoral compartment demonstrates mild degenerative changes, including cartilage fissuring at the patellar apex. The medial compartment demonstrates multiple areas of moderate to severe articular cartilage thinning on both sides of the articulation. Osseous reactive changes are most apparent of the medial femoral condyle. Effusion: A moderate right knee joint effusion is seen. Ligaments and Tendons: At least a partial tear of the posterior root of the medial meniscus is seen. Maceration of portions of the body and posterior horn of the medial meniscus are also seen. No lateral meniscal tear is seen. Cruciate and collateral ligaments appear intact. Visualized extensor tendons appear intact. MRI/Lower Ext Joint Only (Routine) IMPRESSION: 1. Tricompartmental degenerative changes, most prominent in the medial compartm ent. 2. Medial meniscal tearing is noted. 3. Moderate joint effusion. Reading Location: [place] [address]
== END | disposition home or self-care (01) ==
LOC: MRI 12:31
DX: M25.561 Pain in right knee (principal)
CPT/HCPCS: 73721